=== PATIENT | male | born 1955 | race Two or more races ===

== ENCOUNTER 2024-03-28 03:31 | Inpatient (IN) | payer OTHER, MEDICAID ==
[~2024-03-28] VITALS: Ht 170.2 cm; Wt 90.7 kg
[2024-03-28] MEDS ORDERED: ACETAMINOPHEN 500 MG TAB or CAP PO ONE (03:45)
[2024-03-28 04:07] LABS: Urine Bacteria None Seen /hpf (None Seen)
--- NOTE | 2024-03-28 04:22 | ED.PDOC ---
History of Present Illness HPI Comments 68 y/o M with a history of hypertension, diabetes, liver cirrhosis, liver cancer, dyslipidemia brought in by EMS from home after family called for altered mental status starting at around 2:30 a.m.. Patient was noted to be confused and not responding appropriately to family. He is alert and oriented x4 at baseline. Patient family reported he has also been having abdominal pain and nausea for the past 3 days. On arrival he was noted to be febrile and tachycardic. He was oriented times 0 4 paramedics, however on arrival to the ED patient was able to state that he is having pain in the right upper quadrant of his abdomen. Chief Complaint: Abdominal Pain Time Seen by MD: 04:25 Primary Care Provider: Unk Reviewed Notes: Nurses Notes, Food And Beverage Checker Notes, Medications, Allergies Allergies: Coded Allergies: NO KNOWN ALLERGIES (Unverified , 03/28/24) Information Source: Emergency Med Personnel Mode of Arrival: EMS Severity: Moderate Timing: Days Duration: Since onset Prehospital treatment: None Past Medical History PAST MEDICAL HISTORY: Cancer (liver), DM, High Lipids, HTN, Liver (cirrhosis) Past Medical History (Other): obesity Surgical History (Other): lumbar fusion, right shoulder pain Family History Family History: Unknown Social History Smoker: Non-Smoker Alcohol: Denies ETOH Use Drugs: Denies Drug Use Lives In: Home All Other Systems: Reviewed and Negative (reviewed negative unless otherwise stated above or in HPI) Physical Exam General Appearance: Mild Distress, Obese HEENT: PERRL/EOMI, Other (Moist mucous membranes. No facial asymmetry.) Neck: Full Range of Motion, Normal Inspection, Supple Respiratory: Lungs Clear, No Accessory Muscle Use, No Respiratory Distress, Normal Breath Sounds Cardiovascular: No Edema, No JVD, Tachycardia Breast Exam: Deferred Gastrointestinal: Diffuse, RUQ, Soft, Tenderness, Other (Diffuse abdominal tenderness to palpation, greatest in the right upper quadrant. No rebound or guarding. No Johnson's sign.) Genitalia: Deferred Pelvic: Deferred Rectal: Deferred Extremities: Normal inspection, Normal range of motion, Non-tender, No pedal edema Neurologic: Alert (Oriented times 1. Able to answer yes/no questions.), Normal Affect, Normal Mood, Other (Moves all extremities. No gross focal deficit.) Cerebellar Function: NOT DONE Reflexes: NOT DONE Skin: Dry, Normal Color, Warm Lymphatic: NOT DONE Was a procedure done? Was a procedure done?: No EKG EKG : Pulse Rate (adult): 123 Comments Sinus tach, rate 123, normal NV and QRS intervals, QTC prolonged at 498, left axis deviation, low-voltage QRS, nonspecific T changes. Differential Dx Considerations may include: Biliary tract disease, SBP, UTI, colitis, diverticular disease, electrolyte imbalance, viral syndrome, UTI, gastroenteritis, sepsis, CVA, TIA, hepatic/metabolic encephalopathy, encephalitis, meningitis, among others X-Ray, Labs, Meds, VS Vital Signs Date Time Temp Pulse Resp B/P (MAP) Pulse Ox O2 Delivery O2 Flow Rate FiO2 03/28/24 05:11 99.3 03/28/24 04:59 128 21 161/98 03/28/24 04:22 123 03/28/24 03:41 123 03/28/24 03:35 100.0 125 23 154/95 (114) 96 Lab Test 03/28/24 05:59 03/28/24 05:55 03/28/24 04:58 03/28/24 04:03 Range/Units Influenza Type A Antigen Pending Influenza Type B Antigen Pending SARS-CoV-2 Antigen (Rapid) Pending Lactic Acid Level Pending 6.6 *H 0.4-2.0 mmol/L Troponin I High Sensitivity 51 41 </=54 ng/L White Blood Count 6.4 4.4-10.8 10^3/uL Red Blood Count 4.96 4.5-5.90 10^6/uL Hemoglobin 14.3 13.5-17.5 g/dL Hematocrit 42.8 41.0-53.0 % Mean Corpuscular Volume 86.2 80.0-100.0 fL Mean Corpuscular Hemoglobin 28.8 28.0-32.0 pg Mean Corpuscular Hemoglobin Concent 33.4 32.0-36.0 g/dL Red Cell Distribution Width 14.9 H 11.8-14.3 % Platelet Count 94 L 140-450 10^3/uL Mean Platelet Volume 8.8 6.9-10.8 fL Neutrophils (%) (Auto) 95.4 H 37.0-80.0 % Lymphocytes (%) (Auto) 2.7 L 10.0-50.0 % Monocytes (%) (Auto) 1.7 0.0-12.0 % Eosinophils (%) (Auto) 0.0 0.0-7.0 % Basophils (%) (Auto) 0.2 0.0-2.0 % Neutrophils # (Auto) 6.1 1.6-8.6 10 ^3/uL Lymphocytes # (Auto) 0.2 L 0.4-5.4 10 ^3/uL Monocytes # (Auto) 0.1 0-1.3 10 ^3/uL Eosinophils # (Auto) 0 0-0.8 10 ^3/uL Basophils # (Auto) 0 0-0.2 10 ^3/uL Nucleated Red Blood Cells 0.0 % Platelet Estimate Decreased Sodium Level 130 L 136-145 mmol/L Potassium Level 3.5 3.5-5.1 mmol/L Chloride Level 93 L 98-107 mmol/L Carbon Dioxide Level 22 20-31 mmol/L Anion Gap 15 5-15 Blood Urea Nitrogen 24 H 9-23 mg/dL Creatinine 1.09 0.700-1.30 mg/dL Glomerular Filtration Rate Calc 73 >90 mL/min BUN/Creatinine Ratio 22.0 H 10.0-20.0 Serum Glucose 200 H 74-106 mg/dL Calcium Level 10.0 8.7-10.4 mg/dL Total Bilirubin 7.1 H 0.2-1.0 mg/dL Aspartate Amino Transferase (AST) 93 H 13-40 U/L Alanine Aminotransferase (ALT) 98 H 7-40 U/L Alkaline Phosphatase 231 H 46-116 U/L Ammonia 34 H 11-32 umol/L Total Protein 7.3 5.7-8.2 g/dL Albumin 4.1 3.2-4.8 g/dL Lipase 30 12-53 U/L Test 03/28/24 04:00 Range/Units Urine Color Dark-yellow Yellow Urine Clarity Clear Clear Urine pH 6.0 5.0-9.0 Urine Specific Redig 1.020 1.001-1.035 Urine Protein 1+ H Negative Urine Ketones Trace Negative Urine Blood 1+ H Negative /uL Urine Nitrite Negative Negative Urine Bilirubin 2+ Negative Urine Urobilinogen 6 Negative mg/dL Urine Leukocyte Esterase Negative Negative /uL Urine RBC 11 0 - 3 /hpf Urine Microscopic WBC 2 0-3 /HPF Urine Squamous Epithelial Cells Few <5 /hpf Urine Bacteria None seen None Seen /hpf Urine Glucose Normal Normal mg/dL Current Medications Medications (Trade) Dose Ordered Sig/Destiney Route Start Time Stop Time Status Last Admin Ondansetron HCl (Zofran) 4 mg ONCE ONCE IV 03/28/24 03:45 03/28/24 03:50 DC 03/28/24 04:58 Morphine Sulfate 4 mg ONCE ONCE IV 03/28/24 03:45 03/28/24 03:50 DC 03/28/24 04:59 Piperacillin Sod/ Tazobactam Sod 100 ml @ 100 mls/hr ONCE ONCE IV 03/28/24 03:45 03/28/24 04:44 DC 03/28/24 05:27 Vancomycin HCl 250 ml @ 250 mls/hr ONCE ONCE IV 03/28/24 03:45 03/28/24 04:44 DC 03/28/24 05:07 Ibuprofen (Motrin Tablet) 800 mg ONCE ONCE PO 03/28/24 04:30 03/28/24 04:31 DC 03/28/24 05:11 Sodium Chloride 1,000 ml @ 1,000 mls/hr Q1H ONCE IV 03/28/24 04:30 03/28/24 05:29 DC 03/28/24 04:57 Lactulose 30 ml ONCE ONCE PO 03/28/24 05:00 03/28/24 05:03 DC 03/28/24 05:11 Sodium Chloride 2,000 ml @ 1,000 mls/hr Q2H ONCE IV 03/28/24 05:15 03/28/24 05:54 DC 03/28/24 05:27 PROCEDURE(s): HWOCT - HEAD WITHOUT CONTRAST REASON: aloc ORDER NUMBER(s): [id number], ACCESSION NUMBER(s): [id number] EXAM: CT HEAD WITHOUT CONTRAST INDICATION: aloc TECHNIQUE: CT of the head without intravenous contrast. Coronal and sagittal reformatted images are submitted. Radiation Dose : 1. Head: CT Dose: CTDI volume is 21.5 mGy. Dose-length product is 1272.4 mGy*cm The dose indicators for CT are the volume Computed Tomography (CT) Dose Index (CTDIvol) and the Dose Length Product (DLP), and are measured in units of mGy and mGy-cm, respectively. These indicators are not patient dose, but values generated from the CT scanner acquisition factors. The report includes radiation exposure data for exposures received during this examination. All CT scans at this medical facility are performed using dose modulation techniques as appro priate to a performed exam including the following: Automated exposure control was utilized; adjustment of the MA and/or KV according to patient size; and use of iterative reconstruction technique. COMPARISON: None FINDINGS: There is no evidence of acute intracranial hemorrhage, extra-axial collection, mass effect, midline shift, herniation or hydrocephalus. The ventricles, sulci and cisterns are age appropriate. The jha-white differentiation is intact. There is opacification of the left maxillary sinus and partial opacification of the right ethmoid air cells. The mastoid air cells are clear. No depressed calvarial fracture. The surrounding soft tissues are unremarkable. IMPRESSION: 1. No evidence of acute intracranial abnormality. EDURE(s): CXRP - CHEST PORTABLE REASON: fever aloc ORDER NUMBER(s): [id number], ACCESSION NUMBER(s): [id number] EXAM: XR Chest, 1 View CLINICAL INDICATION: fever aloc TECHNIQUE: Frontal view of the chest. COMPARISON: None FINDINGS: LUNGS AND PLEURAL SPACES: See below. HEART: Cardiomegaly with mild congestion. MEDIASTINUM: Unremarkable. Normal mediastinal contour. BONES/JOINTS: Unremarkable. No acute fracture. OTHER FINDINGS: . None. IMPRESSION: Cardiomegaly with mild congestion. EDURE(s): ABPL - CT AB PEL WO CON-NO ORAL OR IV REASON: abd pain, fever, aloc ORDER NUMBER(s): [id number], ACCESSION NUMBER(s): [id number] Exam: CT CT AB PEL WO CON-NO ORAL OR IV History: abd pain, fever, aloc Comparison Study: None available at time of dictation. Technique: Multidetector spiral CT of the abdomen and pelvis was performed from lung bases to pubic symphysis. Imaging was performed without intravenous contrast. Coronal and sagittal multiplanar reformats were obtained from the axial data set by the technologist. Radiation Dose : 1. Abdomen/Pelvis: CTDIvol 21.5 mGy, DLP 1272.4 mGy*cm. Findings: Evaluation of vasculature and solid organs is limited due to lack of intravenous contrast use. Lung Bases: Lung bases are clear. Visualized portions of the heart and pericardium are unremarkable. Liver: Nodular contour of the liver compatible with cirrhosis. Gallbladder and Biliary Tree: The gallbladder is distended. There are gallstones. Common bile duct is dilated measuring 9 mm and there 2 dense foci within the common bile duct suspicious for choledocholithiasis. Spleen: Enlarged spleen measuring 14.4 cm in length. Pancreas: The pancreas is grossly unremarkable. Adrenal Glands: Unremarkable Kidneys: No intrarenal calculi. There is a 2.1 cm heterogeneous mass in the lower pole of the right kidney. No hydronephrosis. GI tract: The stomach is grossly normal in appearance. No evidence of small bowel wall thickening or abnormal dilatation to suggest bowel obstruction. There is wall thickening of the ascending colon and fat stranding. The appendix is not visualized, however no evidence of acute inflammatory changes are seen in the right lower quadrant. Peritoneum/mesentery/retroperitoneum. No evidence of free intraperitoneal air. No ascites. Lymph nodes: There are lymph nodes in the johanna hepatis which measure to 1.4 cm in short axis. Abdominal Wall: Bilateral fat containing inguinal hernias. Vasculature: The visualized abdominal aorta is normal in size and caliber. Evaluation of abdominal and pelvic vessels is limited due to lack of intravenous contrast. There are atherosclerotic calcifications in the aorta. Urinary Bladder: Grossly unremarkable for degree of distention. Pelvic Organs: Unremarkable Musculoskeletal: No aggressive focal bony lesions, acute fractures or dislocation. Multilevel lumbar spondylosis. IMPRESSION: 1. Acute colitis of the ascending colon. 2. Distended gallbladder. Dense foci in the dilated common bile duct suspicious for stones in the common bile duct. Right upper quadrant ultrasound is suggested for further evaluation. 3. 2.1 cm right renal mass. This is concerning for malignancy. 4. Cirrhosis and stigmata of portal hypertension. 5. Lymph nodes in the johanna hepatis may be reactive or or could reflect edelmira metastases. X-Ray, Labs, Meds, VS Comment 68-year-old male with a history of hypertension, diabetes, dyslipidemia, liver cirrhosis, liver CA, CKD brought in by EMS from home with altered mental status, fever and abdominal pain Vitals remarkable for temperature 100, heart rate 125, respiratory rate 23, BP 154/95 Exam remarkable for orientation x1, tachycardia, diffuse abdominal tenderness to palpation, greatest in the right upper quadrant CT head unremarkable Chest x-ray mild vascular congestion CT abdomen and pelvis IMPRESSION: 1. Acute colitis of the ascending colon. 2. Distended gallbladder. Dense foci in the dilated common bile duct suspicious for stones in the common bile duct. Right upper quadrant ultrasound is suggested for further evaluation. 3. 2.1 cm right renal mass. This is concerning for malignancy. 4. Cirrhosis and stigmata of portal hypertension. 5. Lymph nodes in the johanna hepatis may be reactive or or could reflect edelmira metastases. CBC remarkable for platelets 94, metabolic panel remarkable for sodium 130, chloride 93, BUN 24, glucose 200, lipase normal, ammonia level elevated at 34, lactate 6.6, UA pending Patient treated with the following in the ED: 1 L 0.9 normal saline IV bolus, morphine 4 mg IV, Zofran 4 mg IV, Zosyn 4.5 g IV, vancomycin 1 g IV, ibuprofen 800 mg p.o., lactulose 30 mL p.o. On re-evaluation, patient states pain has improved. Tachycardia is improving. Plan is to admit the patient for IV antibiotics, lactate trend and GI evaluat ion. Time of 1ST Reevaluation: 04:55 Reevaluation 1ST: Unchanged Patient Education/Counseling: Other (patient is altered ) Family Education/Counseling: No Family Present Sepsis Sepsis Reasesment Focused Exam Sepsis focused exam: focus exam completed (Capillary refill less than 2 seconds, tachycardia improving. 30 cc/kilogram bolus was not administered due to finding of vascular congestion on chest x-ray. Aggressive fluid hydration may cause harm.), time: (0502) Departure 1 Departure Time of Disposition: 05:24 Impression: Primary Impression: Hepatic encephalopathy Additional Impressions: Sepsis Qualified Codes: A41.9 - Sepsis, unspecified organism Colitis Disposition: ADMITTED INPATIENT Admit to: [facility] Condition: Guarded Critical Care Note Critical Care Time?: Yes (45 min-critical care time only) Critical care comment: Critical care time including multiple bedside re-evaluations, review of lab and imaging studies, and discussion of the case with the admitting provider. Patient is high risk for neurologic, hemodynamic and/or metabolic decompensation. Stability Stability form required: No Heart Score Heart Score: Heart Score Response (Comments) Value History N/A 0 EKG N/A 0 Age N/A 0 Risk Factors N/A 0 Troponin N/A 0 Total 0 I personally scribed for HAIM CARMONA MD ([email or web address]) on 03/28/24 at 04:22. Electronically submitted by Tato Clement ([email or web address]). I personally scribed for HAIM CARMONA MD ([email or web address]) on 03/28/24 at 04:44. Electronically submitted by Tato Clement ([email or web address]). HAIM CARMONA MD Mar 28, 2024 04:22
[2024-03-28 04:36] LABS: Albumin 4.1 g/dL (3.2-4.8); Anion Gap 15 (5-15); Carbon Dioxide 22 mmol/L (20-31); Lipase 30 U/L (12-53); Potassium 3.5 mmol/L (3.5-5.1); Total Protein 7.3 g/dL (5.7-8.2)
[2024-03-28 04:39] LABS: Basophils # (auto) 0 10 ^3/uL (0-0.2); Basophils % (auto) 0.2 % (0.0-2.0); Eosinophils # (auto) 0 10 ^3/uL (0-0.8); Hematocrit 42.8 % (41.0-53.0); Hemoglobin 14.3 g/dL (13.5-17.5); Lymphocytes # (auto) 0.2 10 ^3/uL (0.4-5.4); Lymphocytes % (auto) 2.7 % (10.0-50.0); Mean Corpuscular Hemoglobin 28.8 pg (28.0-32.0); Mean Corpuscular Hgb Conc. 33.4 g/dL (32.0-36.0); Mean Corpuscular Volume 86.2 fL (80.0-100.0); Monocytes # (auto) 0.1 10 ^3/uL (0-1.3); Monocytes % (auto) 1.7 % (0.0-12.0); Neutrophils # (auto) 6.1 10 ^3/uL (1.6-8.6); Neutrophils % (auto) 95.4 % (37.0-80.0); Platelet Count (auto) 94 10^3/uL (140-450); Red Blood Cells 4.96 10^6/uL (4.5-5.90); Red Cell Distribution Width 14.9 % (11.8-14.3); White Blood Cell 6.4 10^3/uL (4.4-10.8)
[2024-03-28 04:44] LABS: Alanine Aminotransferase 98 U/L (7-40); Alkaline Phosphatase 231 U/L (46-116); Aspartate Aminotransferase 93 U/L (13-40); Bilirubin, Total 7.1 mg/dL (0.2-1.0); Blood Urea Nitrogen 24 mg/dL (9-23); Chloride 93 mmol/L (98-107); Glucose 200 mg/dL (74-106); Sodium 130 mmol/L (136-145)
[2024-03-28 04:45] LABS: Lactic Acid w/Reflex 6.6 mmol/L (0.4-2.0)
[2024-03-28] MEDS: SODIUM CHLORIDE 0.9% 1,000 ML IV ONE (04:57)
[2024-03-28] MEDS: ONDANSETRON HCL 4 MG/2 ML VIAL IV ONE (04:58)
[2024-03-28] MEDS: MORPHINE SULFATE 4 MG/ML SYR/VIAL IV ONE (04:59)
[2024-03-28 05:03] LABS: Urine Blood 1+ /uL (Negative); Urine Clarity Clear (Clear); Urine Color Dark-Yellow (Yellow); Urine Protein, UAD 1+ (Negative); Urine Squamous Epithelial Cell FEW /hpf (<5); Urine Urobilinogen 6 mg/dL (Negative); Urine WBC 2 /HPF (0-3)
[2024-03-28] MEDS: VANCOMYCIN 1GM/250ML KIT 250 ML IV ONE (05:07)
[2024-03-28] MEDS: LACTULOSE 20Gm/30ML SOLN PO ONE (05:11)
[2024-03-28] MEDS: IBUPROFEN 800 MG TAB PO ONE (05:11)
--- NOTE | 2024-03-28 05:18 | ECG ---
[facility] Test Date: 2024-03-28 Test Time: 03:35:00 Pat Name: MANUEL ARZATE Department: ED Room: 0291T Gender: M Parachute Line Tier: FAHAD : 1955 Requested By: HAIM SMITH Order Number: [id number] Reading MD: Jay Carlos Measurements Intervals [place] Rate: 127 P: 0 CT: 121 QRS: -37 QRSD: 94 T: 77 QT: 345 QTc: 502 Interpretive Statements Sinus tachycardia Left axis deviation Low voltage, precordial leads Prolonged QT interval Electronically Signed On 03-30-2024 22:04:28 PST by Jay Carlos Please click the below link to view image of tracing.
[2024-03-28] MEDS: PIPERACILLIN-TAZO 4.5GM 100 ML IV ONE (05:27)
[2024-03-28] MEDS: SODIUM CHLORIDE 0.9% 2,000 ML IV ONE (05:27)
[2024-03-28 05:29] LABS: Platelet Estimate Decreased
--- NOTE | 2024-03-28 05:45 | DVH ---
EXAM: XR Chest, 1 View CLINICAL INDICATION: fever aloc TECHNIQUE: Frontal view of the chest. COMPARISON: None FINDINGS: LUNGS AND PLEURAL SPACES: See below. HEART: Cardiomegaly with mild congestion. MEDIASTINUM: Unremarkable. Normal mediastinal contour. BONES/JOINTS: Unremarkable. No acute fracture. OTHER FINDINGS: . None. IMPRESSION: Cardiomegaly with mild congestion.
--- NOTE | 2024-03-28 05:58 | DVH ---
Exam: CT CT AB PEL WO CON-NO ORAL OR IV History: abd pain, fever, aloc Comparison Study: None available at time of dictation. Technique: Multidetector spiral CT of the abdomen and pelvis was performed from lung bases to pubic s ymphysis. Imaging was performed without intravenous contrast. Coronal and sagittal multiplanar refor mats were obtained from the axial data set by the technologist. Radiation Dose : 1. Abdomen/Pelvis: CTDIvol 21.5 mGy, DLP 1272.4 mGy*cm. Findings: Evaluation of vasculature and solid organs is limited due to lack of intravenous contrast use. Lung Bases: Lung bases are clear. Visualized portions of the heart and pericardium are unremarkable. Liver: Nodular contour of the liver compatible with cirrhosis. Gallbladder and Biliary Tree: The gallbladder is distended. There are gallstones. Common bile duct i s dilated measuring 9 mm and there 2 dense foci within the common bile duct suspicious for choledocho lithiasis. Spleen: Enlarged spleen measuring 14.4 cm in length. Pancreas: The pancreas is grossly unremarkable. Adrenal Glands: Unremarkable Kidneys: No intrarenal calculi. There is a 2.1 cm heterogeneous mass in the lower pole of the right kidney. No hydronephrosis. GI tract: The stomach is grossly normal in appearance. No evidence of small bowel wall thickening or abnormal dilatation to suggest bowel obstruction. There is wall thickening of the ascending colon an d fat stranding. The appendix is not visualized, however no evidence of acute inflammatory changes ar e seen in the right lower quadrant. Peritoneum/mesentery/retroperitoneum. No evidence of free intraperitoneal air. No ascites. Lymph nodes: There are lymph nodes in the johanna hepatis which measure to 1.4 cm in short axis. Abdominal Wall: Bilateral fat containing inguinal hernias. Vasculature: The visualized abdominal aorta is normal in size and caliber. Evaluation of abdominal a nd pelvic vessels is limited due to lack of intravenous contrast. There are atherosclerotic calcifica tions in the aorta. Urinary Bladder: Grossly unremarkable for degree of distention. Pelvic Organs: Unremarkable Musculoskeletal: No aggressive focal bony lesions, acute fractures or dislocation. Multilevel lumbar spondylosis. IMPRESSION: 1. Acute colitis of the ascending colon. 2. Distended gallbladder. Dense foci in the dilated common bile duct suspicious for stones in the com mon bile duct. Right upper quadrant ultrasound is suggested for further evaluation. 3. 2.1 cm right renal mass. This is concerning for malignancy. 4. Cirrhosis and stigmata of portal hypertension. 5. Lymph nodes in the johanna hepatis may be reactive or or could reflect edelmira metastases.
--- NOTE | 2024-03-28 06:01 | DVH ---
EXAM: CT HEAD WITHOUT CONTRAST INDICATION: aloc TECHNIQUE: CT of the head without intravenous contrast. Coronal and sagittal reformatted images are submitted. Radiation Dose : 1. Head: CT Dose: CTDI volume is 21.5 mGy. Dose-length product is 1272.4 mGy*cm The dose indicators for CT are the volume Computed Tomography (CT) Dose Index (CTDIvol) and the Dose Length Product (DLP), and are measured in units of mGy and mGy-cm, respectively. These indicators are not patient dose, but values generated from the CT scanner acquisition factors. The report includes radiation exposure data for exposures received during this examination. All CT scans at this medical facility are performed using dose modulation techniques as appropriate to a performed exam including the following: Automated exposure control was utilized; adjustment of the MA and/or KV according to patient size; and use of iterative reconstruction technique. COMPARISON: None FINDINGS: There is no evidence of acute intracranial hemorrhage, extra-axial collection, mass effect, midline s hift, herniation or hydrocephalus. The ventricles, sulci and cisterns are age appropriate. The jha-white differentiation is intact. There is opacification of the left maxillary sinus and partial opacification of the right ethmoid air cells. The mastoid air cells are clear. No depressed calvarial fracture. The surrounding soft tissues are unremarkable. IMPRESSION: 1. No evidence of acute intracranial abnormality.
[2024-03-28 06:40] LABS: Rapid Influenza A Negative (Negative); Rapid Influenza B Negative (Negative)
[2024-03-28 06:41] LABS: COVID19 ANTIGEN SOFIA FIA NEGATIVE (NEGATIVE)
--- NOTE | 2024-03-28 08:07 | DVH ---
EXAM: US GALLBLADDER INDICATION: Cholelithiasis TECHNIQUE: Multiple real-time sonographic images were obtained of the right upper quadrant. COMPARISON: None FINDINGS: The liver demonstrates heterogeneous echotexture without focal mass lesions. There is a nod ular contour. Liver measures 16.0cm in length. There is hepatopedal color doppler flow in the main portal vein. There is no intrahepatic biliary ductal dilatation. The gallbladder has sludge and gallstones. The gallbladder wall measures 0.8 cm. The common bile duct measures 0.9 cm. There is a negative sonographic Johnson's sign. The right kidney measures 10.2 cm. No hydronephrosis. Hypoechoic mass in the upper pole o the righ t kidney measures 2.0cm x 2.1 x 1.9 cm. The pancreas is not well visualized due to overlying bowel gas. Visualized portions of the aorta and inferior vena cava are unremarkable. No evidence of ascites. IMPRESSION: 1. Gallstones and sludge. Gallbladder wall thickening measuring 0.8 cm. Negative sonographic johnson's sign. 2. 2.1 cm right renal hypoechoic mass. This is concerning for malignancy. MRI of the abdomen with in travenous contrast is recommended. 3. Cirrhosis.
[2024-03-28] MEDS ORDERED: ATEN100T PO (08:10)
[2024-03-28] MEDS ORDERED: LACT10SO3 PO (08:10)
[2024-03-28] MEDS ORDERED: FLUT100I INH (08:10)
[2024-03-28] MEDS ORDERED: FURO20TA4 PO (08:10)
[2024-03-28] MEDS ORDERED: TIZA-142 PO (08:10)
[2024-03-28] MEDS ORDERED: DULO1CAP6 PO (08:10)
[2024-03-28] MEDS ORDERED: LISI40TA16 PO (08:10)
[2024-03-28] MEDS ORDERED: ATOR10TA PO (08:10)
[2024-03-28] MEDS ORDERED: METF-370 PO (08:10)
[2024-03-28] MEDS ORDERED: TRAZ-227 PO (08:10)
[2024-03-28] MEDS ORDERED: ONDANSETRON HCL 4 MG/2 ML VIAL IV PRN (08:15)
[2024-03-28] MEDS ORDERED: MORPHINE SULFATE INJ 2 MG/ml SYRG IV PRN (08:15)
[2024-03-28] MEDS ORDERED: DEXTROSE (50%) 50ML SYRG IV PRN (08:15)
[2024-03-28] MEDS ORDERED: NITROGLYCERIN 0.4 MG SL TAB SL PRN (08:15)
--- NOTE | 2024-03-28 08:24 | DVHHP2 ---
History of Present Illness Reason for Visit: Abdominal pain, ALOC History of Present Illness Jonny Carter is a 68-year-old male with past medical history of diabetes, hypertension, sleep apnea, hyperlipidemia, liver cirrhosis, and liver cancer, who came in for abdominal pain and ALOC. Patient lives with his daughter. She states he is usually independent with all his ADL's. This morning she found him confused, unable to get out of the bathroom and he had urinated on himself. Lactic acid level is elevated in ER. During his time in the ER BP has been decreasing, all home BP medications held. Patient continues to be altered. Cardiovascular: HTN, hyperipidemia Pulmonary: Other (Sleep apnea) Heme/Onc: Cancer (Liver) Hepatobiliary: Cirrhosis Endocrine: Diabetes Past Surgical History: Other (right shoulder, back fusion) Family History: None Smoke: No ALCOHOL: none Drugs: None Lives: with Family Review of Systems Constitutional: No: Fever, Chills, Sweats, Weakness, Malaise, Other Eyes: No: Pain, Vision change, Conjunctivae inflammation, Eyelid inflammation, Other, Redness ENT: No: Ear pain, Ear discharge, Nose pain, Nose discharge, Nose congestion, M outh pain, Mouth swelling, Throat pain, Throat swelling, Other Respiratory: No: Cough, Dry, Shortness of breath, SOB with excertion, Wheezing, Hemoptysis, Pleuritic Pain, Sputum, Wheezing, Other Cardiovascular: No: Chest Pain, Palpitations, Orthopnea, Paroxysmal Noc. Dyspnea, Edema, Lt Headedness, Other Gastrointestinal: Abdominal Pain; No: Nausea, Vomiting, Diarrhea, Constipation, Melena, Hematochezia, Other Genitourinary: No Dysuria, No Frequency, No Incontinence, No Hematuria, No Retention, No Other Musculoskeletal: No: other, neck pain, shoulder pain, arm pain, back pain, hand pain, leg pain, foot pain Skin: No: Rash, Lesions, Jaundice, Bruising, Other Neurological: Weakness, Confusion; No: Numbness, Incoordination, Change in speech, Seizures, Other Allergies: Coded Allergies: NO KNOWN ALLERGIES (Unverified , 03/28/24) Medications Current Medications Medications Dose Ordered Sig/Destiney Route Start Time Stop Time Status Last Admin Dose Admin Sodium Chloride 10 ml Q8HR IV 03/28/24 14:00 UNV Acetaminophen/ Hydrocodone Bitart 1 tab Q4HP PRN PO 03/28/24 08:15 UNV Ondansetron HCl 4 mg Q4HP PRN IV 03/28/24 08:15 UNV Docusate Sodium 100 mg BIDPRN PRN PO 03/28/24 08:15 UNV Nitroglycerin 0.4 mg Q5MINP PRN SL 03/28/24 08:15 UNV Morphine Sulfate 2 mg Q30M PRN IV 03/28/24 08:15 UNV Diagnostic Test (Pha) 1 strip Q6HR 03/28/24 12:00 UNV Insulin Human Regular Q6HR SC 03/28/24 12:00 UNV Dextrose 50 ml UD PRN IV 03/28/24 08:15 UNV Trazodone HCl 100 mg HSPRN PRN PO 03/28/24 08:15 UNV Patient Own Medication 1 tab DAILY PO 03/28/24 10:00 UNV Patient Own Medication 10 mg HS PO 03/28/24 22:00 UNV Patient Own Medication 1 tab DAILY PO 03/28/24 10:00 UNV Patient Own Medication 1 puff BID INH 03/28/24 10:00 UNV Patient Own Medication 15 ml BID PO 03/28/24 10:00 UNV Patient Own Medication 1 tab DAILY PO 03/28/24 10:00 UNV Patient Own Medication 1 tab TID PO 03/28/24 14:00 UNV Exam Vital Signs Vital Signs Date Time Temp Pulse Resp B/P (MAP) Pulse Ox O2 Delivery O2 Flow Rate FiO2 03/28/24 06:00 98.2 98 15 126/81 (96) 93 98.2 03/28/24 04:30 Nasal Cannula* 2 28 General Appearance: moderate distress, Other (lethargic, A&O x 2) HEENT: Atraumatic, PERRLA Respiratory: Other (Sleep apnea) Cardiovascular: Normal S1, Normal S2 Abdominal: Normal bowel sounds, Soft, Other (distneded, firm, tender to palpitation) Extremities: No clubbing, No cyanosis, Other (bilateral lower extremity edema) Skin: No rashes, No breakdown Neuro: Other (Unable to ambulate at this time. lethargic) Labs/Xrays Labs Test 03/28/24 07:18 03/28/24 05:59 03/28/24 05:55 03/28/24 04:03 Range/Units Troponin I High Sensitivity 60 *H </=54 ng/L Influenza Type A Antigen Negative Negative Influenza Type B Antigen Negative Negative SARS-CoV-2 Antigen (Rapid) Negative NEGATIVE Lactic Acid Level 4.8 *H 0.4-2.0 mmol/L White Blood Count 6.4 4.4-10.8 10^3/uL Red Blood Count 4.96 4.5-5.90 10^6/uL Hemoglobin 14.3 13.5-17.5 g/dL Hematocrit 42.8 41.0-53.0 % Mean Corpuscular Volume 86.2 80.0-100.0 fL Mean Corpuscular Hemoglobin 28.8 28.0-32.0 pg Mean Corpuscular Hemoglobin Concent 33.4 32.0-36.0 g/dL Red Cell Distribution Width 14.9 H 11.8-14.3 % Platelet Count 94 L 140-450 10^3/uL Mean Platelet Volume 8.8 6.9-10.8 fL Neutrophils (%) (Auto) 95.4 H 37.0-80.0 % Lymphocytes (%) (Auto) 2.7 L 10.0-50.0 % Monocytes (%) (Auto) 1.7 0.0-12.0 % Eosinophils (%) (Auto) 0.0 0.0-7.0 % Basophils (%) (Auto) 0.2 0.0-2.0 % Neutrophils # (Auto) 6.1 1.6-8.6 10 ^3/uL Lymphocytes # (Auto) 0.2 L 0.4-5.4 10 ^3/uL Monocytes # (Auto) 0.1 0-1.3 10 ^3/uL Eosinophils # (Auto) 0 0-0.8 10 ^3/uL Basophils # (Auto) 0 0-0.2 10 ^3/uL Nucleated Red Blood Cells 0.0 % Platelet Estimate Decreased Sodium Level 130 L 136-145 mmol/L Potassium Level 3.5 3.5-5.1 mmol/L Chloride Level 93 L 98-107 mmol/L Carbon Dioxide Level 22 20-31 mmol/L Anion Gap 15 5-15 Blood Urea Nitrogen 24 H 9-23 mg/dL Creatinine 1.09 0.700-1.30 mg/dL Glomerular Filtration Rate Calc 73 >90 mL/min BUN/Creatinine Ratio 22.0 H 10.0-20.0 Serum Glucose 200 H 74-106 mg/dL Calcium Level 10.0 8.7-10.4 mg/dL Total Bilirubin 7.1 H 0.2-1.0 mg/dL Aspartate Amino Transferase (AST) 93 H 13-40 U/L Alanine Aminotransferase (ALT) 98 H 7-40 U/L Alkaline Phosphatase 231 H 46-116 U/L Ammonia 34 H 11-32 umol/L Total Protein 7.3 5.7-8.2 g/dL Albumin 4.1 3.2-4.8 g/dL Lipase 30 12-53 U/L Test 03/28/24 04:00 Range/Units Urine Color Dark-yellow Yellow Urine Clarity Clear Clear Urine pH 6.0 5.0-9.0 Urine Specific [place] 1.020 1.001-1.035 Urine Protein 1+ H Negative Urine Ketones Trace Negative Urine Blood 1+ H Negative /uL Urine Nitrite Negative Negative Urine Bilirubin 2+ Negative Urine Urobilinogen 6 Negative mg/dL Urine Leukocyte Esterase Negative Negative /uL Urine RBC 11 0 - 3 /hpf Urine Microscopic WBC 2 0-3 /HPF Urine Squamous Epithelial Cells Few <5 /hpf Urine Bacteria None seen None Seen /hpf Urine Glucose Normal Normal mg/dL Exam: CT CT AB PEL WO CON-NO ORAL OR IV Findings: Evaluation of vasculature and solid organs is limited due to lack of intravenous contrast use. Lung Bases: Lung bases are clear. Visualized portions of the heart and pericardium are unremarkable. Liver: Nodular contour of the liver compatible with cirrhosis. Gallbladder and Biliary Tree: The gallbladder is distended. There are gallstones. Common bile duct is dilated measuring 9 mm and there 2 dense foci within the common bile duct suspicious for choledocholithiasis. Spleen: Enlarged spleen measuring 14.4 cm in length. Pancreas: The pancreas is grossly unremarkable. Adrenal Glands: Unremarkable Kidneys: No intrarenal calculi. There is a 2.1 cm heterogeneous mass in the lower pole of the right kidney. No hydronephrosis. GI tract: The stomach is grossly normal in appearance. No evidence of small bowel wall thickening or abnormal dilatation to suggest bowel obstruction. There is wall thickening of the ascending colon and fat stranding. The appendix is not visualized, however no evidence of acute inflammatory changes are seen in the right lower quadrant. Peritoneum/mesentery/retroperitoneum. No evidence of free intraperitoneal air. No ascites. Lymph nodes: There are lymph nodes in the johanna hepatis which measure to 1.4 cm in short axis. Abdominal Wall: Bilateral fat containing inguinal hernias. Vasculature: The visualized abdominal aorta is normal in size and caliber. Evaluation of abdominal and pelvic vessels is limited due to lack of intravenous contrast. There are atherosclerotic calcifications in the aorta. Urinary Bladder: Grossly unremarkable for degree of distention. Pelvic Organs: Unremarkable Musculoskeletal: No aggressive focal bony lesions, acute fractures or dislocation. Multilevel lumbar spondylosis. IMPRESSION: 1. Acute colitis of the ascending colon. 2. Distended gallbladder. Dense foci in the dilated common bile duct suspicious for stones in the common bile duct. Right upper quadrant ultrasound is suggested for further evaluation. 3. 2.1 cm right renal mass. This is concerning for malignancy. 4. Cirrhosis and stigmata of portal hypertension. 5. Lymph nodes in the johanna hepatis may be reactive or or could reflect edelmira metastases. EXAM: XR Chest, 1 View FINDINGS: LUNGS AND PLEURAL SPACES: See below. HEART: Cardiomegaly with mild congestion. MEDIASTINUM: Unremarkable. Normal mediastinal contour. BONES/JOINTS: Unremarkable. No acute fracture. OTHER FINDINGS: . None. IMPRESSION: Cardiomegaly with mild congestion. EXAM: CT HEAD WITHOUT CONTRAST FINDINGS: There is no evidence of acute intracranial hemorrhage, extra-axial collection, mass effect, midline shift, herniation or hydrocephalus. The ventricles, sulci and cisterns are age appropriate. The jha-white differentiation is intact. There is opacification of the left maxillary sinus and partial opacification of the right ethmoid air cells. The mastoid air cells are clear. No depressed calvarial fracture. The surrounding soft tissues are unremarkable. IMPRESSION: 1. No evidence of acute intracranial abnormality. EXAM: US GALLBLADDER FINDINGS: The liver demonstrates heterogeneous echotexture without focal mass lesions. There is a nodular contour. Liver measures 16.0cm in length. There is hepatopedal color doppler flow in the main portal vein. There is no intrahepatic biliary ductal dilatation. The gallbladder has sludge and gallstones. The gallbladder wall measures 0.8 cm. The common bile duct measures 0.9 cm. There is a negative sonographic Johnson's sign. The right kidney measures 10.2 cm. No hydronephrosis. Hypoechoic mass in the upper pole o the right kidney measures 2.0cm x 2.1 x 1.9 cm. The pancreas is not well visualized due to overlying bowel gas. Visualized portions of the aorta and inferior vena cava are unremarkable. No evidence of ascites. IMPRESSION: 1. Gallstones and sludge. Gallbladder wall thickening measuring 0.8 cm. Negative sonographic johnson's sign. 2. 2.1 cm right renal hypoechoic mass. This is concerning for malignancy. MRI of the abdomen with intravenous contrast is recommended. 3. Cirrhosis. Assessment/Plan Assessment/Plan Assessment: Hepatic encephalopathy, Liver cancer with possible metastasis, Possible Cholelithiasis, Right renal mass, Lactic acidosis, Possible sepsis, Enlarged lymph nodes, hypertension, Diabetes, Hyperlipidemia, Plan: Admit to Tele, Ammonia levels daily, PT/PTT, Gallbladder ultrasound, Lactic acid, Consider GI for Cholelithiasis, Consider MRI of abdomen, IV hydration, IV antibiotics, Blood cultures, Urine cultures, NPO until mentation improves, Accu checks Q 6 hours with sliding scale, May need to change lactulose from PO to [place], Home medications reconciled, Home BP medications held, Plan discussed with: Patient, Daughter My Orders Orders - TELMA ERICKSON DOOR PATCHER Procedure Category Date Status Time Gallbladder US 03/28/24 Resulted 07:21 Admit ADMIT 03/28/24 Transmitted 08:05 Code Status CODE 03/28/24 Transmitted 08:05 Sodium Chloride Lock PHA 03/28/24 Logged (Saline Lock Ns) 14:00 Hydrocodone-Acet PHA 03/28/24 Logged 5/325mg Tab (Battiest 08:15 Ondansetron Hcl PHA 03/28/24 Logged (Zofran) 08:15 Docusate Sodium PHA 03/28/24 Logged Capsule (Colace 08:15 Complete Blood Count LAB 03/29/24 Verified 04:00 Comprehensive LAB 03/29/24 Verified Metabolic Panel 04:00 Npo (Nothing By DIET 03/28/24 Transmitted Mouth) Diet Breakfast Condition: Critical ERIC 03/28/24 In Process 08:05 Nitroglycerin PHA 03/28/24 Logged Sublingual (Ntrostat 08:15 Morphine Sulfate PHA 03/28/24 Logged Injection 08:15 Stat Ekg For Chest ERIC 03/28/24 In Process Pain 08:05 Notify Of Changes ERIC 03/28/24 In Process From Base 08:05 Casing Cleaner For ERIC 03/28/24 In Process 24 Hours 08:05 Emergency Dysrhythmia ERIC 03/28/24 In Process Protocol 08:05 Rhythm Strips Once [facility] 03/28/24 In Process Every Shift 08:05 Oxygen By Nasal RT 03/28/24 Transmitted Cannula 08:05 Glucose Blood PHA 03/28/24 Logged (Accu-Chek Comfort 12:00 Insulin R (Human) PHA 03/28/24 Logged (Insulin R) 12:00 Dextrose 50% Syringe PHA 03/28/24 Logged 08:15 Ammonia LAB 03/29/24 Verified 04:00 Trazodone Hcl PHA 03/28/24 Logged (Desyrel) 08:15 (Nf) Atenolol PHA 03/28/24 Logged 10:00 (Nf) Atorvastatin PHA 03/28/24 Logged Calcium (Lipitor) 22:00 (Nf) Duloxetine Hcl PHA 03/28/24 Logged 10:00 (Nf) Fluticasone PHA 03/28/24 Logged Furoate-Vilanterol 10:00 (Nf) Lactulose PHA 03/28/24 Logged 10:00 (Nf) Lisinopril PHA 03/28/24 Logged 10:00 (Nf) Tizanidine PHA 03/28/24 Logged Hydrochloride 14:00 Furosemide Injection PHA 03/28/24 Transmitted (Lasix Injection) 08:15 Furosemide Injection PHA 03/28/24 Transmitted (Lasix Injection) 18:00 PTPTT LAB 03/28/24 Verified 08:16 Date of Service: Mar 28, 2024 Billing Provider: TELMA ERICKSON Common Visit Codes: [id number] INP/OBS CARE (HIGH) TELMA ERICKSON Mar 28, 2024 08:23
[2024-03-28 08:39] LABS: INR 1.36 (0.9-1.15); Partial Thromboplastin Time 30.1 SEC (24.5-34.5)
[2024-03-28] MEDS: FUROSEMIDE 40 MG/4 ML VIAL IV ONE (09:05)
[2024-03-28] MEDS ORDERED: ATENOLOL 25 MG TAB PO SCH (10:00)
[2024-03-28] MEDS ORDERED: LISINOPRIL 20 MG TAB PO SCH (10:00)
[2024-03-28] MEDS ORDERED: PATIENTS OWN MEDICATION (Lisinopril 1 TAB) PO SCH (10:00)
[2024-03-28] MEDS ORDERED: DULOXETINE HCL PO SCH (10:00)
[2024-03-28] MEDS: LACTULOSE 20Gm/30ML SOLN PO SCH (10:00)
[2024-03-28] MEDS ORDERED: PATIENTS OWN MEDICATION (Lactulose 15 ML) PO SCH (10:00)
[2024-03-28] MEDS: DULoxetine HCL 30 MG CAP PO SCH (10:00)
[2024-03-28] MEDS ORDERED: VANCOMYCIN 1GM/250ML KIT 250 ML IV ONE (10:00)
[2024-03-28] MEDS ORDERED: VANCOMYCIN PER PHARMACY 0 MG IV SCH (10:00)
[2024-03-28] MEDS ORDERED: ATENOLOL PO SCH (10:00)
[2024-03-28] MEDS: cefTRIAXone 1GM/50ML D5W 50 ML IV ONE (10:47)
[2024-03-28] MEDS: SODIUM CHLORIDE 0.9% 1,000 ML IV SCH (10:48)
[2024-03-28] MEDS: VANCOMYCIN 1GM/250ML KIT 250 ML IV SCH (11:00)
[2024-03-28] MEDS: ACCU-CHEK COMFORT CURVE STRIP VI SCH (12:35)
[2024-03-28] MEDS: InsuLIN REG 1unit/0.01ml Soln (100units/ml) SC SCH (12:38)
--- NOTE | 2024-03-28 12:50 | ECG ---
[facility] Test Date: 2024-03-28 Test Time: 03:41:01 Pat Name: MANUEL ARZATE Department: ED Room: 0291T Gender: M Slip Dumper: FAHAD : 1955 Requested By: HAIM SMITH Order Number: [id number] Reading MD: Jay Carlos Measurements Intervals [place] Rate: 123 P: 0 NV: 0 QRS: -32 QRSD: 88 T: 70 QT: 348 QTc: 498 Interpretive Statements Junctional tachycardia Left axis deviation Low voltage, precordial leads Borderline T abnormalities, anterior leads Borderline prolonged QT interval Baseline wander in lead(s) III,V3 Electronically Signed On 03-30-2024 22:04:34 PST by Jay Carlos Please click the below link to view image of tracing.
[2024-03-28] MEDS: TIZANIDINE HYDROCHLORIDE 4 MG PO SCH (14:00)
[2024-03-28] MEDS: SODIUM CHLOR 0.9% PF (SALINE LOCK) 10ML VIAL/SYR IV SCH (15:42)
[2024-03-28] MEDS: FUROSEMIDE 20 MG/2 ML VIAL IV SCH (18:30)
[2024-03-28 20:34] VITALS: PULSE 74; RESP 18; O2SAT 97
[2024-03-28] MEDS: HYDROcodone-ACET 5/325MG TAB PO PRN (20:34)
[2024-03-28] MEDS ORDERED: PATIENTS OWN MEDICATION (Atorvastatin Calcium (Lipitor) 10 MG) PO SCH (22:00)
[2024-03-28] MEDS: ATORVASTATIN 20 MG TAB PO SCH (22:21)
[2024-03-29] VITALS (11 sets, daily range): BP systolic 106–148; BP diastolic 66–86; PULSE 70–88; RESP 15–20; TEMP 98–99.3; O2SAT 96–99
[2024-03-29] MEDS: VANCOMYCIN 1GM/250ML KIT 250 ML IV SCH (00:20)
[2024-03-29 04:35] LABS: Albumin 3.3 g/dL (3.2-4.8); Anion Gap 8 (5-15); BUN/Creatinine Ratio 19.2 (10.0-20.0); Blood Urea Nitrogen 15 mg/dL (9-23); Calcium 9.1 mg/dL (8.7-10.4); Carbon Dioxide 27 mmol/L (20-31); Chloride 98 mmol/L (98-107)
[2024-03-29 04:36] LABS: Total Protein 6.2 g/dL (5.7-8.2)
[2024-03-29 04:39] LABS: Alanine Aminotransferase 81 U/L (7-40); Alkaline Phosphatase 176 U/L (46-116); Aspartate Aminotransferase 91 U/L (13-40); Bilirubin, Total 5.6 mg/dL (0.2-1.0); Glucose 157 mg/dL (74-106); Potassium 3.5 mmol/L (3.5-5.1); Sodium 133 mmol/L (136-145)
[2024-03-29 04:42] LABS: Basophils # (auto) 0 10 ^3/uL (0-0.2); Basophils % (auto) 0.1 % (0.0-2.0); Eosinophils # (auto) 0.2 10 ^3/uL (0-0.8); Eosinophils % (auto) 2.3 % (0.0-7.0); Hematocrit 39.5 % (41.0-53.0); Lymphocytes # (auto) 0.4 10 ^3/uL (0.4-5.4); Lymphocytes % (auto) 4.1 % (10.0-50.0); Mean Corpuscular Hemoglobin 28.6 pg (28.0-32.0); Mean Corpuscular Hgb Conc. 32.8 g/dL (32.0-36.0); Mean Corpuscular Volume 87.1 fL (80.0-100.0); Monocytes # (auto) 0.4 10 ^3/uL (0-1.3); Neutrophils # (auto) 7.7 10 ^3/uL (1.6-8.6); Neutrophils % (auto) 88.5 % (37.0-80.0); Nucleated Red Blood Cells % 0.1 %; Platelet Count (auto) 81 10^3/uL (140-450); Red Blood Cells 4.54 10^6/uL (4.5-5.90); Red Cell Distribution Width 15.3 % (11.8-14.3); White Blood Cell 8.7 10^3/uL (4.4-10.8)
[2024-03-29] MEDS: cefTRIAXone 1GM/50ML D5W 50 ML IV SCH (09:45)
--- NOTE | 2024-03-29 11:43 | DVHPN2 ---
Subjective The patient is seen and examined at bedside. The patient is more alert awake. Two of his daughters at bedside. The patient is hungry and wanted to eat. The patient passed bedside swallow evaluation Reviewed: Care Plan, H&P, Labs, Medications, Previous Orders, Radiology Changes from previous H/P or p: No Changes Eyes: No Pain, No Vision change, No Conjunctivae inflammation, No Eyelid inflammation, No Other, No Redness ENT: No Ear pain, No Ear discharge, No Nose pain, No Nose discharge, No Nose congestion, No Mouth pain, No Mouth swelling, No Throat pain, No Throat swelling, No Other Cardiovascular: No Chest Pain, No Palpitations, No Orthopnea, No Paroxysmal Noc. Dyspnea, No Edema, No Lt Headedness, No Other Respiratory: No Cough, No Dry, No Shortness of breath, No SOB with excertion, No Wheezing, No Hemoptysis, No Pleuritic Pain, No Sputum, No Other Gastrointestinal: No Nausea, No Vomiting; Abdominal Pain; No Diarrhea, No Constipation, No Melena, No Hematochezia, No Other Genitourinary: No Dysuria, No Frequency, No Incontinence, No Hematuria, No Retention, No Other Musculoskeletal: No other, No neck pain, No shoulder pain, No arm pain, No back pain, No hand pain, No leg pain, No foot pain Skin: No Rash, No Lesions, No Jaundice, No Bruising, No Other Objective Vitals Vital Signs Date Time Temp Pulse Resp B/P (MAP) Pulse Ox O2 Delivery O2 Flow Rate FiO2 03/29/24 10:38 71 18 96 Nasal Cannula* 2 28 03/29/24 10:38 99.3 123/75 (91) 99.3 Intake/Output Intake and Output 03/29/24 07:00 Intake Total 4775 ml Balance 4775 ml Intake IV Total 4775 ml General Appearance: Alert, Cooperative, No acute distress HEENT: Atraumatic, PERRLA, EOMI, Mucous membr. moist/pink Neck: Supple Lungs: Clear to auscultation, Normal air movement Cardiovascular: Regular rate, Normal S1, Normal S2, No murmurs, Gallops, Rubs Abdomen: Normal bowel sounds, Soft Neuro: Cranial nerves 3-12 NL Psych/Mental Status: Mental status NL Medications Current Medications Medications Dose Ordered Sig/Destiney Route Start Time Stop Time Status Last Admin Dose Admin Sodium Chloride 10 ml Q8HR IV 03/28/24 14:00 03/29/24 06:15 10 ML Acetaminophen/ Hydrocodone Bitart 1 tab Q4HP PRN PO 03/28/24 08:15 03/29/24 09:30 1 TAB Ondansetron HCl 4 mg Q4HP PRN IV 03/28/24 08:15 Docusate Sodium 100 mg BIDPRN PRN PO 03/28/24 08:15 Nitroglycerin 0.4 mg Q5MINP PRN SL 03/28/24 08:15 Morphine Sulfate 2 mg Q30M PRN IV 03/28/24 08:15 Diagnostic Test (Pha) 1 strip Q6HR 03/28/24 12:00 03/29/24 06:14 1 STRIP Insulin Human Regular Q6HR SC 03/28/24 12:00 03/28/24 12:38 3 UNITS Dextrose 50 ml UD PRN IV 03/28/24 08:15 Trazodone HCl 100 mg HSPRN PRN PO 03/28/24 08:15 Patient Own Medication 1 tab DAILY PO 03/28/24 10:00 UNV Patient Own Medication 10 mg HS PO 03/28/24 22:00 UNV Patient Own Medication 1 tab DAILY PO 03/28/24 10:00 UNV Patient Own Medication 1 puff BID IN 03/28/24 10:00 03/28/24 00:20 1 PUFF Patient Own Medication 15 ml BID PO 03/28/24 10:00 UNV Patient Own Medication 1 tab DAILY PO 03/28/24 10:00 UNV Patient Own Medication 1 tab TID PO 03/28/24 14:00 03/29/24 06:15 1 TAB Furosemide 20 mg BIDD IV 03/28/24 18:00 03/28/24 18:30 20 MG Duloxetine HCl 60 mg DAILY PO 03/28/24 10:00 03/29/24 09:30 60 MG Atorvastatin Calcium 10 mg HS PO 03/28/24 22:00 03/28/24 22:21 10 MG Lactulose 15 ml BID PO 03/28/24 10:00 03/29/24 09:31 15 ML Sodium Chloride 1,000 ml @ 125 mls/hr Q8H IV 03/28/24 10:00 03/29/24 09:47 125 MLS/HR Ceftriaxone Sodium 50 ml @ 100 mls/hr DAILY@09 IV 03/29/24 09:00 03/29/24 09:45 100 MLS/HR Vancomycin HCl 0 ml @ 0 mls/hr UD IV 03/28/24 10:00 Vancomycin HCl 250 ml @ 250 mls/hr Q12H IV 03/29/24 00:00 03/29/24 00:20 250 MLS/HR Laboratory Results Laboratory Tests 03/29/24 03:57 Chemistry Test 03/29/24 03:57 Albumin 3.3 g/dL (3.2-4.8) Calcium Level 9.1 mg/dL (8.7-10.4) Total Protein 6.2 g/dL (5.7-8.2) LFT Test 03/29/24 03:57 Alanine Aminotransferase (ALT) 81 U/L (7-40) H Alkaline Phosphatase 176 U/L (46-116) H Aspartate Amino Transferase (AST) 91 U/L (13-40) H Total Bilirubin 5.6 mg/dL (0.2-1.0) H Urinalysis Test 03/28/24 04:00 Urine Color Dark-yellow (Yellow) Urine Clarity Clear (Clear) Urine pH 6.0 (5.0-9.0) Urine Specific [place] 1.020 (1.001-1.035) Urine Protein 1+ (Negative) H Urine Ketones Trace (Negative) Urine Blood 1+ /uL (Negative) H Urine Nitrite Negative (Negative) Urine Bilirubin 2+ (Negative) Urine Urobilinogen 6 mg/dL (Negative) Urine Leukocyte Esterase Negative /uL (Negative) Urine RBC 11 /hpf (0 - 3) Urine Microscopic WBC 2 /HPF (0-3) Urine Squamous Epithelial Cells Few /hpf (<5) Urine Bacteria None seen /hpf (None Seen) Urine Glucose Normal mg/dL (Normal) Microbiology Microbiology Date/Time Source Procedure Growth Status 03/28/24 04:03 Blood Blood Culture - Preliminary Resulted Labs and/or images reviewed: Labs reviewed by me Assessment/Plan Assessment/Plan Hepatic encephalopathy, Liver cancer with possible metastasis, Possible Cholelithiasis, Right renal mass, Lactic acidosis, Possible sepsis, Enlarged lymph nodes, hypertension, Diabetes, Hyperlipidemia, Plan: Continuing current management. Continuing with IV fluid. I will restart food with cardiac diet and carb controlled diabetic diet. We will follow up with blood culture and urine culture Continuing Accu-Chek and sliding scale insulin Waiting for ammonia level and we will start lactulose MRCP GI consult This medical document was created using an electronic medical record system with [employer] direct computerized dictation system. Although this document has been carefully reviewed, there may still be some phonetic and typographical errors. These areas are purely typographical due to imperfections of the software programs, and do not reflect any compromise in the patient's medical care. Plan discussed with: Patient, Daughter Date of Service: Mar 29, 2024 Billing Provider: STONE MAHMOOD MD Common Visit Codes: [id number] INP/OBS CARE(HIGH) STONE MAHMOOD MD Mar 29, 2024 11:43
[2024-03-30] VITALS (8 sets, daily range): BP systolic 136–181; BP diastolic 53–98; PULSE 72–92; RESP 18–72; TEMP 97.4–98.1; O2SAT 94–99
[2024-03-30] MEDS: OXYCODONE W/ ACETAMINOPHEN 5/325MG TABLET PO ONE (01:23)
[2024-03-30 07:34] LABS: Basophils # (auto) 0 10 ^3/uL (0-0.2); Basophils % (auto) 0.3 % (0.0-2.0); Eosinophils # (auto) 0 10 ^3/uL (0-0.8); Hemoglobin 12.9 g/dL (13.5-17.5); Monocytes % (auto) 5.5 % (0.0-12.0)
[2024-03-30 07:36] LABS: Eosinophils % (auto) 0.7 % (0.0-7.0); Hematocrit 38.4 % (41.0-53.0); Lymphocytes # (auto) 0.4 10 ^3/uL (0.4-5.4); Lymphocytes % (auto) 5.7 % (10.0-50.0); Mean Corpuscular Hemoglobin 29.2 pg (28.0-32.0); Mean Corpuscular Hgb Conc. 33.8 g/dL (32.0-36.0); Mean Corpuscular Volume 86.5 fL (80.0-100.0); Monocytes # (auto) 0.3 10 ^3/uL (0-1.3); Neutrophils # (auto) 5.5 10 ^3/uL (1.6-8.6); Neutrophils % (auto) 87.8 % (37.0-80.0); Platelet Count (auto) 61 10^3/uL (140-450); Red Blood Cells 4.44 10^6/uL (4.5-5.90); Red Cell Distribution Width 15.2 % (11.8-14.3); White Blood Cell 6.3 10^3/uL (4.4-10.8)
[2024-03-30 07:52] LABS: Potassium 3.7 mmol/L (3.5-5.1)
[2024-03-30 07:53] LABS: Anion Gap 9 (5-15)
[2024-03-30 07:58] LABS: BUN/Creatinine Ratio 26.4 (10.0-20.0); Blood Urea Nitrogen 19 mg/dL (9-23)
[2024-03-30 08:00] LABS: Calcium 8.7 mg/dL (8.7-10.4); Carbon Dioxide 31 mmol/L (20-31); Chloride 95 mmol/L (98-107); Glucose 130 mg/dL (74-106); Sodium 135 mmol/L (136-145)
--- NOTE | 2024-03-30 12:30 | DVHCONRES ---
Date Seen: Mar 30, 2024 Resident Creating Document: BLANCA MCKEON RESIDENT Referring Physician MD Leena Reason for Consultation Hepatic encephalopathy History of Present Illness Jonny Carter is a 68-year-old male with past medical history of diabetes, hypertension, sleep apnea, hyperlipidemia, liver cirrhosis, and liver cancer, who came in for abdominal pain and ALOC. Patient lives with his daughter. She states he is usually independent with all his ADL's. This morning she found him confused, unable to get out of the bathroom and he had urinated on himself. Lactic acid level is elevated in ER. Patient was seen and examined on the bedside. He is alert oriented x3. Complaint of abdominal pain and distention. No other active complaint. Allergies: Coded Allergies: NO KNOWN ALLERGIES (Unverified , 03/28/24) Home Meds Reported Medications Oxycodone Hcl (OXYCODONE HCL) 5 Mg Tb, 15 MG PO TID, TAB 03/30/24 Omeprazole (Omeprazole Dr) 20 Mg Cap, 1 DAILY 03/30/24 Lactulose (Lactulose) 10 Gm/15 Ml Kimberly, 15 ML PO BID 03/28/24 Duloxetine HCl (Duloxetine HCl) 60 Mg Cap, 1 TAB PO DAILY 03/28/24 Metformin Hydrochloride (Metformin Hcl) 500 Mg Tab, 1 TAB PO BID 03/28/24 Fluticasone Furoate-Vilanterol (BREO ELLIPTA) 1 Inh Inh, 1 PUFF INH BID 03/28/24 Trazodone Hcl (Trazodone Hcl) 50 Mg Tab, 2 TAB PO HSPRN PRN 03/28/24 Furosemide (Furosemide) 20 Mg Tab, 1 TAB PO DAILY 03/28/24 Atenolol (Atenolol) 100 Mg Tab, 1 TAB PO DAILY 03/28/24 Atorvastatin Calcium (Lipitor) 10 Mg Tab, 10 MG PO HS 03/28/24 Tizanidine Hydrochloride (Tizanidine Hcl) 4 Mg Tab, 1 TAB PO TID 03/28/24 Lisinopril (Lisinopril) 40 Mg Tab, 1 TAB PO DAILY 03/28/24 Vital Signs Vital Signs Date Time Temp Pulse Resp B/P (MAP) Pulse Ox O2 Delivery O2 Flow Rate FiO2 03/30/24 11:00 93 10 178/93 (121) 96 03/30/24 07:24 97.5 97.5 03/30/24 07:24 Nasal Cannula* 3 32 Physical Exam Physical examination: General Appearance: Alert, Oriented X3, Cooperative, No acute distress HEENT: Atraumatic, PERRLA, EOMI, Mucous membrane moist/pink Respiratory: Clear to auscultation, Normal air movement Cardiovascular: Regular rate, Normal S1, Normal S2, No murmurs, no chest wall tenderness Abdominal: Abdomen is distended, normal bowel sounds, Soft, No tenderness, No hepatospenomegaly, No masses Extremities: No clubbing, No cyanosis, No edema, Normal pulses, No tenderness/swelling Skin: No rashes, No breakdown, No significant lesion Neuro: Normal gait, Normal speech, Strength at 5/5 X4 ext, Normal tone, Sensation intact, Cranial nerves 3-12 NL, Reflexes 2+ Psych/Mental Status: Mental status NL, Mood NL Labs/Diagnostic Data Labs Test 03/30/24 07:11 03/30/24 05:23 03/29/24 23:00 03/29/24 03:57 Range/Units White Blood Count 6.3 # 4.4-10.8 10^3/uL Red Blood Count 4.44 L 4.5-5.90 10^6/uL Hemoglobin 12.9 L 13.5-17.5 g/dL Hematocrit 38.4 L 41.0-53.0 % Mean Corpuscular Volume 86.5 80.0-100.0 fL Mean Corpuscular Hemoglobin 29.2 28.0-32.0 pg Mean Corpuscular Hemoglobin Concent 33.8 32.0-36.0 g/dL Red Cell Distribution Width 15.2 H 11.8-14.3 % Platelet Count 61 L 140-450 10^3/uL Mean Platelet Volume 9.1 6.9-10.8 fL Neutrophils (%) (Auto) 87.8 H 37.0-80.0 % Lymphocytes (%) (Auto) 5.7 L 10.0-50.0 % Monocytes (%) (Auto) 5.5 0.0-12.0 % Eosinophils (%) (Auto) 0.7 0.0-7.0 % Basophils (%) (Auto) 0.3 0.0-2.0 % Neutrophils # (Auto) 5.5 1.6-8.6 10 ^3/uL Lymphocytes # (Auto) 0.4 0.4-5.4 10 ^3/uL Monocytes # (Auto) 0.3 0-1.3 10 ^3/uL Eosinophils # (Auto) 0 0-0.8 10 ^3/uL Basophils # (Auto) 0 0-0.2 10 ^3/uL Nucleated Red Blood Cells 0.0 % Sodium Level 135 L 136-145 mmol/L Potassium Level 3.7 3.5-5.1 mmol/L Chloride Level 95 L 98-107 mmol/L Carbon Dioxide Level 31 20-31 mmol/L Anion Gap 9 5-15 Blood Urea Nitrogen 19 9-23 mg/dL Creatinine 0.72 0.700-1.30 mg/dL Glomerular Filtration Rate Calc 99 >90 mL/min BUN/Creatinine Ratio 26.4 H 10.0-20.0 Serum Glucose 130 H 74-106 mg/dL Calcium Level 8.7 8.7-10.4 mg/dL Ammonia < 10 L 11-32 umol/L POC Glucose 151 H 70-106 mg/dl Vancomycin Level Trough 13.7 H 5-10 ug/mL Total Bilirubin 5.6 H 0.2-1.0 mg/dL Aspartate Amino Transferase (AST) 91 H 13-40 U/L Alanine Aminotransferase (ALT) 81 H 7-40 U/L Alkaline Phosphatase 176 H 46-116 U/L Total Protein 6.2 5.7-8.2 g/dL Albumin 3.3 3.2-4.8 g/dL Test 03/28/24 07:18 03/28/24 05:59 03/28/24 05:55 03/28/24 04:03 Range/Units Troponin I High Sensitivity 60 *H </=54 ng/L Influenza Type A Antigen Negative Negative Influenza Type B Antigen Negative Negative SARS-CoV-2 Antigen (Rapid) Negative NEGATIVE Lactic Acid Level 4.8 *H 0.4-2.0 mmol/L Platelet Estimate Decreased Prothrombin Time 14.0 H 9.3-11.8 sec Prothrombin Time INR 1.36 H 0.9-1.15 Activated Partial Thromboplast Time 30.1 24.5-34.5 SEC Hemoglobin A1c 5.7 <5.7 % A1C Lipase 30 12-53 U/L Test 03/28/24 04:00 Range/Units Urine Color Dark-yellow Yellow Urine Clarity Clear Clear Urine pH 6.0 5.0-9.0 Urine Specific [place] 1.020 1.001-1.035 Urine Protein 1+ H Negative Urine Ketones Trace Negative Urine Blood 1+ H Negative /uL Urine Nitrite Negative Negative Urine Bilirubin 2+ Negative Urine Urobilinogen 6 Negative mg/dL Urine Leukocyte Esterase Negative Negative /uL Urine RBC 11 0 - 3 /hpf Urine Microscopic WBC 2 0-3 /HPF Urine Squamous Epithelial Cells Few <5 /hpf Urine Bacteria None seen None Seen /hpf Urine Glucose Normal Normal mg/dL Microbiology Date/Time Source Procedure Growth Status 03/28/24 04:03 Blood Blood Culture - Final Escherichia coli Complete 03/28/24 04:00 Voided Urine Urine Culture - Final Proteus mirabilis Complete Assessment Assessment: # Alcoholic liver cirrhosis # Hepatic encephalopathy # Coagulopathy and thrombocytopenia likely due to cirrhosis # Hyperbilirubinemia with transaminitis likely due to cirrhosis # Cholelithiasis # Possible Liver cancer # Possible renal malignancy # Acute on chronic CHF # Sepsis Plan: - cardiac diet - H&H stable - Ammonia is normal now - driss Jimenez discriminant function for alcoholic hepatitis 15.7, good prognosis - Continue lactulose 15 mL b.i.d. - Continue IV antibiotics and other management for sepsis as per primary - Pending FOBT, hepatitis panel and MRI of the abdomen to rule out metastasis disease - Protonix 40 mg p.o. daily - We will follow this patient Plan discussed with Dr. Shaw Plan discussed with: Patient, Other BLANCA MCKEON RESIDENT Mar 30, 2024 12:30
[2024-03-30] MEDS ORDERED: OMEP1CAP70 (17:02)
[2024-03-30] MEDS ORDERED: OXY5T PO (17:04)
[2024-03-30] MEDS: OXYCODONE W/ ACETAMINOPHEN 5/325MG TABLET PO PRN (17:50)
--- NOTE | 2024-03-30 20:12 | DVH ---
[id number] MRI MRI ABDOMEN NO CONTRAST Attending Name: JOHNSJANUARY Ritchie COMPARISON: Ultrasound dated 03/28/2024, CT scan dated 03/28/2024 INDICATION: F/U CT GALLSTONES, RULE OUT MALIGNANCY TECHNIQUE: MRCP was performed without the use of intravenous contrast using a MRI imaging system. Three-dimensional MRCP was performed using maximum intensity projection reconstruction on an [employer] workstation under concurrent supervision. FINDINGS: Dilated CBD measuring 1.3 cm in caliber. 2 calculi are seen in the distal CBD each measuring 7 mm. Ga llbladder is moderately distended containing sludge and tiny calculi. There is mild gallbladder wall thickening and pericholecystic fluid. Intrahepatic ductal dilatation noted. Cirrhotic liver morphology. No discrete lesion in limited unenhanced study. Moderate splenomegaly. Small ascites. Mural thickening and pericolonic inflammation noted surrounding the ascending colon. Scattered coloni c diverticula in the descending and sigmoid colon. No evidence of bowel obstruction. The kidneys and adrenal glands are unremarkable. Pancreas is grossly unremarkable. IMPRESSION: 1. Intrahepatic and extrahepatic ductal dilatation due to 2 obstructing calculi in distal CBD each me asuring 7 mm. 2. Gallbladder sludge, tiny 3. Calculi, gallbladder wall thickening and pericholecystic fluid. Recommend clinical and biochemical correlation to rule out cholecystitis. Gallbladder wall thickening could be related to hepatocellula r dysfunction. 4. Cirrhosis with evidence of portal hypertension small amount of ascites. 5. Circumferential mural thickening of the ascending colon that could reflect colitis or infiltrative marrow lesion. Recommend clinical and biochemical correlation follow-up to ensure resolution and phylicia ignity.
[2024-03-30] MEDS: traZODone HCL 50 MG TAB PO PRN (22:26)
[2024-03-31] VITALS (8 sets, daily range): BP systolic 108–169; BP diastolic 68–101; PULSE 65–131; RESP 18–19; TEMP 97.8–98.3; O2SAT 90–96
[2024-03-31 05:24] LABS: Anion Gap 11 (5-15); Carbon Dioxide 23 mmol/L (20-31)
[2024-03-31 05:27] LABS: BUN/Creatinine Ratio 15.9 (10.0-20.0)
[2024-03-31 05:34] LABS: Alanine Aminotransferase 78 U/L (7-40); Albumin 3.2 g/dL (3.2-4.8); Alkaline Phosphatase 347 U/L (46-116); Aspartate Aminotransferase 134 U/L (13-40); Bilirubin, Total 8.9 mg/dL (0.2-1.0); Blood Urea Nitrogen 10 mg/dL (9-23); Calcium 8.5 mg/dL (8.7-10.4); Chloride 95 mmol/L (98-107); Glucose 134 mg/dL (74-106); Potassium 3.8 mmol/L (3.5-5.1); Sodium 129 mmol/L (136-145)
[2024-03-31] MEDS: PANTOPRAZOLE 40 MG TAB PO SCH (06:13)
[2024-03-31 10:40] LABS: Basophils # (auto) 0 10 ^3/uL (0-0.2); Basophils % (auto) 0.5 % (0.0-2.0); Eosinophils # (auto) 0 10 ^3/uL (0-0.8); Eosinophils % (auto) 0.5 % (0.0-7.0); Hematocrit 39.5 % (41.0-53.0); Hemoglobin 13.4 g/dL (13.5-17.5); Lymphocytes # (auto) 0.5 10 ^3/uL (0.4-5.4); Lymphocytes % (auto) 6.9 % (10.0-50.0); Mean Corpuscular Hgb Conc. 33.9 g/dL (32.0-36.0); Mean Corpuscular Volume 85.4 fL (80.0-100.0); Monocytes # (auto) 0.7 10 ^3/uL (0-1.3); Monocytes % (auto) 10.1 % (0.0-12.0); Neutrophils # (auto) 5.8 10 ^3/uL (1.6-8.6); Platelet Count (auto) 61 10^3/uL (140-450); Red Blood Cells 4.63 10^6/uL (4.5-5.90); Red Cell Distribution Width 14.6 % (11.8-14.3); White Blood Cell 7.1 10^3/uL (4.4-10.8)
--- NOTE | 2024-03-31 12:08 | DVHPN2 ---
Progress Note Date Seen: Mar 31, 2024 Resident Creating Document: BLANCA MCKEON RESIDENT Medical Necessity Reason Pt with a Central, PICC or Fol: Yes Subjective Review of Systems Patient was seen and examined the bedside. He is alert oriented x3. He looks yellowish and complaining of diffuse abdominal pain and nausea. No bowel movement since yesterday. No other active complaint. MRI of the abdomen revealed Intrahepatic and extrahepatic ductal dilatation due to 2 obstructing calculi in distal CBD each measuring 7 mm. Patient needs to transfer to higher level of care for ERCP for symptomatic choledocholithiasis and consulted psychiatric social worker to work on the transfer . Objective vital signs Vital Sign Date Time Temp Pulse Resp B/P (MAP) Pulse Ox O2 Delivery O2 Flow Rate FiO2 03/31/24 08:47 97.9 65 18 143/75 (97) 94 97.9 03/31/24 08:00 Nasal Cannula* 3 32 Total Intake and Output 03/30/24 03/30/24 03/31/24 15:00 23:00 07:00 Intake Total 800 ml 950 ml 1000 ml Output Total 1500 ml 515 ml Balance -700 ml 435 ml 1000 ml medications Current Medications Medications Dose Ordered Sig/Destiney Route Start Time Stop Time Status Last Admin Dose Admin Sodium Chloride 10 ml Q8HR IV 03/28/24 14:00 03/31/24 06:13 10 ML Ondansetron HCl 4 mg Q4HP PRN IV 03/28/24 08:15 Docusate Sodium 100 mg BIDPRN PRN PO 03/28/24 08:15 Nitroglycerin 0.4 mg Q5MINP PRN SL 03/28/24 08:15 Morphine Sulfate 2 mg Q30M PRN IV 03/28/24 08:15 Diagnostic Test (Pha) 1 strip Q6HR 03/28/24 12:00 03/31/24 11:47 1 STRIP Insulin Human Regular Q6HR SC 03/28/24 12:00 03/31/24 11:48 2 UNITS Dextrose 50 ml UD PRN IV 03/28/24 08:15 Trazodone HCl 100 mg HSPRN PRN PO 03/28/24 08:15 03/30/24 22:26 100 MG Patient Own Medication 1 tab DAILY PO 03/28/24 10:00 UNV Patient Own Medication 10 mg HS PO 03/28/24 22:00 UNV Patient Own Medication 1 tab DAILY PO 03/28/24 10:00 UNV Patient Own Medication 1 puff BID IN 03/28/24 10:00 03/29/24 12:34 1 PUFF Patient Own Medication 15 ml BID PO 03/28/24 10:00 UNV Patient Own Medication 1 tab DAILY PO 03/28/24 10:00 UNV Patient Own Medication 1 tab TID PO 03/28/24 14:00 03/30/24 13:10 1 TAB Furosemide 20 mg BIDD IV 03/28/24 18:00 03/31/24 06:13 20 MG Duloxetine HCl 60 mg DAILY PO 03/28/24 10:00 03/31/24 10:13 60 MG Atorvastatin Calcium 10 mg HS PO 03/28/24 22:00 03/30/24 22:19 10 MG Lactulose 15 ml BID PO 03/28/24 10:00 03/31/24 10:13 15 ML Sodium Chloride 1,000 ml @ 125 mls/hr Q8H IV 03/28/24 10:00 03/31/24 04:31 125 MLS/HR Ceftriaxone Sodium 50 ml @ 100 mls/hr DAILY@09 IV 03/29/24 09:00 03/31/24 10:13 100 MLS/HR Vancomycin HCl 0 ml @ 0 mls/hr UD IV 03/28/24 10:00 Vancomycin HCl 250 ml @ 250 mls/hr Q12H IV 03/29/24 00:00 03/31/24 12:00 250 MLS/HR Oxycodone/ Acetaminophen 2 tab Q6HP PRN PO 03/30/24 14:30 03/31/24 10:14 2 TAB Pantoprazole Sodium 40 mg DAILY@0600 PO 03/31/24 06:00 03/31/24 06:13 40 MG Examination Physical examination: General Appearance: Alert, Oriented X3, Cooperative, mild distress HEENT: Atraumatic, PERRLA, EOMI, Mucous membrane moist/pink Respiratory: Clear to auscultation, Normal air movement Cardiovascular: Regular rate, Normal S1, Normal S2, No murmurs, no chest wall tenderness Abdominal: Tenderness in the epigastric region, Normal bowel sounds, No hepatospenomegaly, No masses Extremities: No clubbing, No cyanosis, No edema, Normal pulses, No tenderness/swelling Skin: No rashes, No breakdown, No significant lesion Neuro: Normal gait, Normal speech, Strength at 5/5 X4 ext, Normal tone, Sensation intact,grossly intact cranial nerves. Psych/Mental Status: Mental status NL, Mood NL laboratory and microbiology Laboratory Tests 03/31/24 10:31 03/31/24 04:32 Test 03/31/24 04:32 Range/Units Serum Glucose 134 H 74-106 mg/dL Microbiology Date/Time Source Procedure Growth Status 03/29/24 12:53 Nose MRSA Screen - Final Complete 03/28/24 04:03 Blood Blood Culture - Final Escherichia coli Complete 03/28/24 04:00 Voided Urine Urine Culture - Final Proteus mirabilis Complete Labs and/or images reviewed: Labs reviewed by me, Image(s) reviewed by me Problem List/Assessment/Plan Problem List/Assessment/Plan Assessment: # Alcoholic liver cirrhosis # Hepatic encephalopathy # Coagulopathy and thrombocytopenia likely due to cirrhosis # Hyperbilirubinemia with transaminitis likely due to choledocholithiasis # Cholelithiasis with choledocholithiasis # Possible Liver cancer # Possible renal malignancy # Acute on chronic CHF # Sepsis # NSTEMI type 2 due to above MRI of the abdomen demonstrated Intrahepatic and extrahepatic ductal dilatation due to 2 obstructing calculi in distal CBD each measuring 7 mm Plan: - Cardiac diet - H&H stable - Patient needs to transfer to [facility] for ERCP for symptomatic choledocholithiasis - Consulted psychiatric social worker for transfer to [facility]. - Ammonia is normal now - Lanredreys discriminant function for alcoholic hepatitis 15.7, good prognosis - Continue lactulose 15 mL b.i.d. - Continue IV antibiotics and other management for sepsis as per primary - Pending FOBT, hepatitis panel . - Protonix 40 mg p.o. daily - We will follow this patient Plan discussed with Dr. Shaw Plan discussed with: Patient, Other My Orders My Orders Orders - BLANCA MCKEON Procedure Category Date Status Time Comprehensive LAB 03/30/24 In Process Hepatitis Panel 17:09 Stool Occult Blood LAB 03/31/24 Logged 07:36 Pantoprazole Tablet PHA 03/31/24 In Process (Protonix Tablet) 06:00 * Fulfillment Specialist CONS 03/31/24 Verified Consult BLANCA MCKEON RESIDENT Mar 31, 2024 12:08
[2024-04-01] VITALS (11 sets, daily range): BP systolic 121–162; BP diastolic 72–101; PULSE 69–154; RESP 16–19; TEMP 97.4–99; O2SAT 94–96
[2024-04-01] MEDS: DOCUSATE SOD 100 MG CAP PO PRN (17:18)
[2024-04-02] VITALS (9 sets, daily range): BP systolic 139–155; BP diastolic 79–101; PULSE 63–145; RESP 17–20; TEMP 97.6–98.4; O2SAT 90–100
[2024-04-02] MEDS: SODIUM CHLORIDE 0.9% 500 ML IV ONE (06:00)
--- NOTE | 2024-04-02 06:03 | ECG ---
[facility] Test Date: 2024-04-02 Test Time: 04:57:22 Pat Name: MANUEL ARZATE Department: Room: 0291T B Gender: M Research Technologist: bruna REYES : 1955 Requested By: MOODY TAVERAS Order Number: [id number] Reading MD: Jay Carlos Measurements Intervals [place] Rate: 146 P: 239 VT: 96 QRS: -66 QRSD: 92 T: 46 QT: 316 QTc: 493 Interpretive Statements Ectopic atrial tachycardia LAD, consider left anterior fascicular block Low voltage, precordial leads RSR' in V1 or V2, right VCD or RVH Borderline prolonged QT interval Electronically Signed On 04-04-2024 21:30:39 PST by Jay Carlos Please click the below link to view image of tracing.
[2024-04-02 07:31] LABS: Anion Gap 11 (5-15); Calcium 9.4 mg/dL (8.7-10.4); Carbon Dioxide 28 mmol/L (20-31)
[2024-04-02 07:37] LABS: BUN/Creatinine Ratio 15.9 (10.0-20.0); Blood Urea Nitrogen 11 mg/dL (9-23)
[2024-04-02 07:56] LABS: Chloride 93 mmol/L (98-107); Glucose 116 mg/dL (74-106); Potassium 3.1 mmol/L (3.5-5.1); Sodium 132 mmol/L (136-145)
[2024-04-02 09:53] LABS: Basophils # (auto) 0.1 10 ^3/uL (0-0.2); Eosinophils # (auto) 0.1 10 ^3/uL (0-0.8); Eosinophils % (auto) 1.6 % (0.0-7.0); Hematocrit 40.6 % (41.0-53.0); Hemoglobin 13.6 g/dL (13.5-17.5); Lymphocytes # (auto) 0.7 10 ^3/uL (0.4-5.4); Lymphocytes % (auto) 8.9 % (10.0-50.0); Mean Corpuscular Hemoglobin 28.3 pg (28.0-32.0); Mean Corpuscular Hgb Conc. 33.4 g/dL (32.0-36.0); Mean Corpuscular Volume 84.7 fL (80.0-100.0); Monocytes # (auto) 0.9 10 ^3/uL (0-1.3); Monocytes % (auto) 10.9 % (0.0-12.0); Neutrophils # (auto) 6.1 10 ^3/uL (1.6-8.6); Neutrophils % (auto) 77.6 % (37.0-80.0); Nucleated Red Blood Cells % 0.1 %; Platelet Count (auto) 120 10^3/uL (140-450); Red Cell Distribution Width 14.9 % (11.8-14.3); White Blood Cell 7.9 10^3/uL (4.4-10.8)
[2024-04-02 10:08] LABS: Anion Gap 9 (5-15); BUN/Creatinine Ratio 13.8 (10.0-20.0); Blood Urea Nitrogen 9 mg/dL (9-23); Carbon Dioxide 30 mmol/L (20-31)
[2024-04-02 10:09] LABS: Albumin 3.3 g/dL (3.2-4.8); Total Protein 6.4 g/dL (5.7-8.2)
[2024-04-02 10:11] LABS: Alanine Aminotransferase 128 U/L (7-40); Alkaline Phosphatase 528 U/L (46-116); Aspartate Aminotransferase 204 U/L (13-40); Bilirubin, Total 7.4 mg/dL (0.2-1.0); Calcium 8.6 mg/dL (8.7-10.4); Chloride 94 mmol/L (98-107); Glucose 124 mg/dL (74-106); Potassium 3.1 mmol/L (3.5-5.1); Sodium 133 mmol/L (136-145)
--- NOTE | 2024-04-02 10:34 | DVHPN2 ---
Progress Note - Dictate Date Seen: Apr 02, 2024 Medical Necessity Reason Pt with a Central, PICC or Fol: Yes Subjective Patient is resting comfortably at this time and sleeping Patient is currently on a soft diet Patient was having moderate pain requiring pain medicines and yesterday had some tachycardia because of pain vital signs Vital Sign Date Time Temp Pulse Resp B/P (MAP) Pulse Ox O2 Delivery O2 Flow Rate FiO2 04/02/24 09:17 98.4 117 20 145/101 (116) 100 98.4 04/01/24 20:00 Nasal Cannula* 2 28 Total Intake and Output 04/01/24 04/01/24 04/02/24 15:00 23:00 07:00 Intake Total 1050 ml 1300 ml 600 ml Output Total 300 ml 650 ml Balance 1050 ml 1000 ml -50 ml medications Current Medications Medications Dose Ordered Sig/Destiney Route Start Time Stop Time Status Last Admin Dose Admin Sodium Chloride 10 ml Q8HR IV 03/28/24 14:00 04/02/24 06:00 10 ML Ondansetron HCl 4 mg Q4HP PRN IV 03/28/24 08:15 Docusate Sodium 100 mg BIDPRN PRN PO 03/28/24 08:15 04/02/24 09:46 100 MG Nitroglycerin 0.4 mg Q5MINP PRN SL 03/28/24 08:15 Morphine Sulfate 2 mg Q30M PRN IV 03/28/24 08:15 Diagnostic Test (Pha) 1 strip Q6HR 03/28/24 12:00 04/02/24 06:00 1 STRIP Insulin Human Regular Q6HR SC 03/28/24 12:00 04/01/24 17:30 2 UNITS Dextrose 50 ml UD PRN IV 03/28/24 08:15 Trazodone HCl 100 mg HSPRN PRN PO 03/28/24 08:15 04/01/24 22:01 100 MG Patient Own Medication 1 tab DAILY PO 03/28/24 10:00 UNV Patient Own Medication 10 mg HS PO 03/28/24 22:00 UNV Patient Own Medication 1 tab DAILY PO 03/28/24 10:00 UNV Patient Own Medication 1 puff BID IN 03/28/24 10:00 03/29/24 12:34 1 PUFF Patient Own Medication 15 ml BID PO 03/28/24 10:00 UNV Patient Own Medication 1 tab DAILY PO 03/28/24 10:00 UNV Patient Own Medication 1 tab TID PO 03/28/24 14:00 03/30/24 13:10 1 TAB Furosemide 20 mg BIDD IV 03/28/24 18:00 04/02/24 06:32 20 MG Duloxetine HCl 60 mg DAILY PO 03/28/24 10:00 04/02/24 09:47 60 MG Atorvastatin Calcium 10 mg HS PO 03/28/24 22:00 04/01/24 21:57 10 MG Lactulose 15 ml BID PO 03/28/24 10:00 04/02/24 09:45 15 ML Ceftriaxone Sodium 50 ml @ 100 mls/hr DAILY@09 IV 03/29/24 09:00 04/02/24 09:51 100 MLS/HR Vancomycin HCl 0 ml @ 0 mls/hr UD IV 03/28/24 10:00 Vancomycin HCl 250 ml @ 250 mls/hr Q12H IV 03/29/24 00:00 04/02/24 00:05 250 MLS/HR Oxycodone/ Acetaminophen 2 tab Q6HP PRN PO 03/30/24 14:30 04/02/24 06:40 2 TAB Pantoprazole Sodium 40 mg DAILY@0600 PO 03/31/24 06:00 04/02/24 06:32 40 MG objective General Appearance: Alert, Oriented X3; sleeping HEENT: Atraumatic, PERRLA, EOMI, Mucous membrane moist/pink Respiratory: Clear to auscultation, Normal air movement Cardiovascular: Regular rate, Normal S1, Normal S2, No murmurs, no chest wall tenderness Abdominal: Tenderness in the epigastric region, Normal bowel sounds, No hepatospenomegaly, No masses; obese Extremities: No clubbing, No cyanosis, No edema, Normal pulses, No tenderness/swelling Skin: No rashes, No breakdown, No significant lesion laboratory and microbiology Laboratory Tests 04/02/24 09:27 Test 04/02/24 09:27 Range/Units Serum Glucose 124 H 74-106 mg/dL Problems(with codes): (1) Choledocholithiasis (2) Hepatic encephalopathy (3) Sepsis (4) Right upper quadrant pain (5) Cirrhosis (6) Cholelithiasis NOS (7) Elevated liver enzymes (8) Portal hypertension (9) Hyperbilirubinemia (10) Liver cancer Prognosis Plan: - Cardiac diet - Patient needs to transfer to [facility] for ERCP for symptomatic choledocholithiasis - Consulted social and political studies professor for transfer to [facility]. - Ammonia is normal now; continue lactulose 15 mL p.o. twice a day - Tonys discriminant function for alcoholic hepatitis 15.7, good prognosis - Continue IV antibiotics and other management for sepsis as per primary - serum alpha fetoprotein elevated; hepatitis profile pending - Protonix 40 mg p.o. daily - We will follow this patient Plan discussed with: Patient, Other (Nurse) ELVIRA BENZ MD Apr 02, 2024 10:34
--- NOTE | 2024-04-02 11:53 | ECG ---
[facility] Test Date: 2024-04-02 Test Time: 11:51:42 Pat Name: MANUEL ARZATE Department: Room: 0291T B Gender: M Phlebotomist Prn: Helen REYES : 1955 Requested By: CARMENZA NELSON Order Number: [id number] Reading MD: Jay Carlos Measurements Intervals [place] Rate: 148 P: -20 WI: 165 QRS: -44 QRSD: 88 T: 53 QT: 316 QTc: 497 Interpretive Statements Sinus tachycardia Left anterior fascicular block Probable anterior infarct, age indeterminate Electronically Signed On 04-04-2024 21:31:02 PST by Jay Carlos Please click the below link to view image of tracing.
[2024-04-02] MEDS: METOPROLOL TARTRATE 1MG/1ML-5ML VIAL IV ONE (12:11)
[2024-04-02] MEDS: METOPROLOL TARTRATE 50 MG TAB PO ONE (12:12)
--- NOTE | 2024-04-02 12:50 | DVHINCON2 ---
Date Seen: Apr 02, 2024 Referring Physician nik Reason for Consultation Tachycardia History of Present Illness 68-year-old male with PMH for HTN, diabetes, HLD, liver cirrhosis, CHF, liver cancer who presents to the hospital abdominal patent altered level consciousness. Patient was admitted for hepatic encephalopathy possible cholelithiasis, right renal mass suspected sepsis. While on telemetry patient noted to have elevated heart rate in the 140s 160s. Initial EKG showed possible junctional versus multifocal atrial tachycardia, questionable atrial fibrillation. Patient denies any history cardiac problems, arrhythmias, or previous anticoagulation. Cardiology consulted. BNP is negative. Troponin initially trending negative x2 with 1 mild positive troponin of 60. Patient also noted to have thrombocytopenia with platelets as low as 61, 120 today. Elevated LFTs, potassium 3.1. Past Medical History HTN Liver cirrhosis CHF Diabetes Past Surgical History Denies previous cardiac surgeries Family History Denies pertinent family cardiac history Social History Denies alcohol, tobacco, or illicit drug use Allergies: Coded Allergies: NO KNOWN ALLERGIES (Unverified , 03/28/24) Home Meds Reported Medications Oxycodone Hcl (OXYCODONE HCL) 5 Mg Tb, 15 MG PO TID, TAB 03/30/24 Omeprazole (Omeprazole Dr) 20 Mg Cap, 1 DAILY 03/30/24 Lactulose (Lactulose) 10 Gm/15 Ml Kimberly, 15 ML PO BID 03/28/24 Duloxetine HCl (Duloxetine HCl) 60 Mg Cap, 1 TAB PO DAILY 03/28/24 Metformin Hydrochloride (Metformin Hcl) 500 Mg Tab, 1 TAB PO BID 03/28/24 Fluticasone Furoate-Vilanterol (BREO ELLIPTA) 1 Inh Inh, 1 PUFF INH BID 03/28/24 Trazodone Hcl (Trazodone Hcl) 50 Mg Tab, 2 TAB PO HSPRN PRN 03/28/24 Furosemide (Furosemide) 20 Mg Tab, 1 TAB PO DAILY 03/28/24 Atenolol (Atenolol) 100 Mg Tab, 1 TAB PO DAILY 03/28/24 Atorvastatin Calcium (Lipitor) 10 Mg Tab, 10 MG PO HS 03/28/24 Tizanidine Hydrochloride (Tizanidine Hcl) 4 Mg Tab, 1 TAB PO TID 03/28/24 Lisinopril (Lisinopril) 40 Mg Tab, 1 TAB PO DAILY 03/28/24 Current Medications Current Medications Medications (Trade) Dose Ordered Sig/Destiney Route PRN Reason Start Time Stop Time Status Last Admin Metoprolol Tartrate (Lopressor Tablet) 50 mg BID PO 04/02/24 22:00 Review of Systems Constitutional: No: Fever, Chills, Sweats, , Other positive: Weakness, Malaise Eyes: No: Pain, Vision change, Conjunctivae inflammation, Eyelid inflammation, Other, Redness ENT: No: Ear pain, Ear discharge, Nose pain, Nose discharge, Nose congestion, Mouth pain, Mouth swelling, Throat pain, Throat swelling, Other Respiratory: No: Cough, Dry,, Wheezing, Hemoptysis, Pleuritic Pain, Sputum, Wheezing, Other positive: Shortness of breath, SOB with exertion Cardiovascular: ; No: Chest Pain Palpitations, Orthopnea, Paroxysmal Noc. Dyspnea, Edema, Lt Headedness, Other Gastrointestinal: No: Nausea, Vomiting, Abdominal Pain, Diarrhea, Constipation, Melena, Hematochezia, Other Genitourinary: No Dysuria, No Frequency, No Incontinence, No Hematuria, No Retention, No Other Musculoskeletal: neck pain; No: other, shoulder pain, arm pain, back pain, hand pain, leg pain, foot pain Skin: No: Rash, Lesions, Jaundice, Bruising, Other Neurological: Other (Dizziness, headache.); No: Weakness, Numbness, Incoordination, Change in speech, Confusion, Seizures Vital Signs Vital Signs Date Time Temp Pulse Resp B/P (MAP) Pulse Ox O2 Delivery O2 Flow Rate FiO2 04/02/24 12:12 142 151/93 04/02/24 09:17 98.4 20 100 98.4 04/01/24 20:00 Nasal Cannula* 2 28 Physical Exam General appearance: Ill-appearing, in no acute distress. HEENT: Exam shows: Normocephalic, atraumatic, PERRLA, EOMI, anicteric sclera Neck: Supple, no bruits Chest: Equal chest excursion bilaterally. Breath sounds normal-no rales or wheezes. Heart: Rhythm: Regular/irregular, tachycardia; no murmur or gallop Abdomen: Exam shows: Soft, nontender, nondistended Musculoskeletal: No clubbing, no cyanosis, no lower extremity edema Dermatology: Jaundice Neurological: Exam shows: Alert and oriented x4, normal speech Available prior records, labs, EKG, rhythm strips reviewed and interpreted Labs/Diagnostic Data Labs Test 04/02/24 11:58 04/02/24 09:27 04/01/24 11:00 03/31/24 22:45 Range/Units POC Glucose 177 H 70-106 mg/dl White Blood Count 7.9 4.4-10.8 10^3/uL Red Blood Count 4.80 4.5-5.90 10^6/uL Hemoglobin 13.6 13.5-17.5 g/dL Hematocrit 40.6 L 41.0-53.0 % Mean Corpuscular Volume 84.7 80.0-100.0 fL Mean Corpuscular Hemoglobin 28.3 28.0-32.0 pg Mean Corpuscular Hemoglobin Concent 33.4 32.0-36.0 g/dL Red Cell Distribution Width 14.9 H 11.8-14.3 % Platelet Count 120 #L 140-450 10^3/uL Mean Platelet Volume 8.6 6.9-10.8 fL Neutrophils (%) (Auto) 77.6 37.0-80.0 % Lymphocytes (%) (Auto) 8.9 L 10.0-50.0 % Monocytes (%) (Auto) 10.9 0.0-12.0 % Eosinophils (%) (Auto) 1.6 0.0-7.0 % Basophils (%) (Auto) 1.0 0.0-2.0 % Neutrophils # (Auto) 6.1 1.6-8.6 10 ^3/uL Lymphocytes # (Auto) 0.7 0.4-5.4 10 ^3/uL Monocytes # (Auto) 0.9 0-1.3 10 ^3/uL Eosinophils # (Auto) 0.1 0-0.8 10 ^3/uL Basophils # (Auto) 0.1 0-0.2 10 ^3/uL Nucleated Red Blood Cells 0.1 % Sodium Level 133 L 136-145 mmol/L Potassium Level 3.1 L 3.5-5.1 mmol/L Chloride Level 94 L 98-107 mmol/L Carbon Dioxide Level 30 20-31 mmol/L Anion Gap 9 5-15 Blood Urea Nitrogen 9 9-23 mg/dL Creatinine 0.65 L 0.700-1.30 mg/dL Glomerular Filtration Rate Calc 102 >90 mL/min BUN/Creatinine Ratio 13.8 10.0-20.0 Serum Glucose 124 H 74-106 mg/dL Calcium Level 8.6 L 8.7-10.4 mg/dL Total Bilirubin 7.4 H 0.2-1.0 mg/dL Aspartate Amino Transferase (AST) 204 H 13-40 U/L Alanine Aminotransferase (ALT) 128 H 7-40 U/L Alkaline Phosphatase 528 H 46-116 U/L B-Type Natriuretic Peptide 56.04 0-100 pg/mL Total Protein 6.4 5.7-8.2 g/dL Albumin 3.3 3.2-4.8 g/dL Vancomycin Level Trough 15.8 H 5-10 ug/mL Stool Occult Blood Negative Negative Stool Occult Blood Sample #3 Negative Test 03/30/24 19:46 03/30/24 07:11 03/28/24 07:18 03/28/24 05:59 Range/Units Ammonia < 10 L 11-32 umol/L Tumor Marker Alpha Fetoprotein 141.0 H 0.0-8.4 ng/mL Troponin I High Sensitivity 60 *H </=54 ng/L Influenza Type A Antigen Negative Negative Influenza Type B Antigen Negative Negative SARS-CoV-2 Antigen (Rapid) Negative NEGATIVE Test 03/28/24 05:55 03/28/24 04:03 03/28/24 04:00 Range/Units Lactic Acid Level 4.8 *H 0.4-2.0 mmol/L Platelet Estimate Decreased Prothrombin Time 14.0 H 9.3-11.8 sec Prothrombin Time INR 1.36 H 0.9-1.15 Activated Partial Thromboplast Time 30.1 24.5-34.5 SEC Hemoglobin A1c 5.7 <5.7 % A1C Lipase 30 12-53 U/L Urine Color Dark-yellow Yellow Urine Clarity Clear Clear Urine pH 6.0 5.0-9.0 Urine Specific [place] 1.020 1.001-1.035 Urine Protein 1+ H Negative Urine Ketones Trace Negative Urine Blood 1+ H Negative /uL Urine Nitrite Negative Negative Urine Bilirubin 2+ Negative Urine Urobilinogen 6 Negative mg/dL Urine Leukocyte Esterase Negative Negative /uL Urine RBC 11 0 - 3 /hpf Urine Microscopic WBC 2 0-3 /HPF Urine Squamous Epithelial Cells Few <5 /hpf Urine Bacteria None seen None Seen /hpf Urine Glucose Normal Normal mg/dL Microbiology Date/Time Source Procedure Growth Status 2/19/25 12:53 Nose MRSA Screen - Final Complete 03/28/24 04:03 Blood Blood Culture - Final Escherichia coli Complete 03/28/24 04:00 Voided Urine Urine Culture - Final Proteus mirabilis Complete Assessment Tachycardia, Multifocal Atrial Tachycardia (MAT) vs atrial fibrillation Liver Cirrhosis Elevated LFTs Hepatic Encephalopathy Sepsis Hypokalemia Positive troponin CHF Cholelithiasis Plan/Recommendation * Follow up EKG. IV metoprolol 5 mg x 1. Continue metoprolol 50 mg po twice daily. * Follow up ECHO * Initial CXR showing cardiomegaly with pulmonary congestion. Continue diuresis * Monitor and replace electrolytes Keep K>4 and MG>2 * GI on board Case Discussed with Dr Knox. Heart rate in the 140s. Follow-up EKG shows sinus tachycardia with PACs, likely episodes of PAT. Continue metoprolol, continue telemetry monitoring. Monitoring replace electrolytes. Follow up echo. Critical care, time spent: 40 minutes This medical document was created using an electronic medical record system with voice recognition software and computerized dictation system. Although this document has been carefully reviewed, there might still be some phonetic and typographical errors. Occasional wrong-word or ``sound-alike substitutions may have occurred due to the inherent limitations of voice recognition software. These areas are purely typographical due to imperfections of the software programs and do not reflect any compromise in the patient's medical care. Please read the chart carefully and recognize, using context, where these substitutions have occurred. Thank you for allowing me to participate in the management of this patient. The treatment plan was discussed with and agreed upon by patient/family including requesting consultants and ordering of imaging/procedures. Plan discussed with: Patient NYHA Physical activity limitations: Class4(Severe)discomfort Date of Service: Apr 02, 2024 Billing Provider: CARMENZA NELSON Cardiology Common Codes: [id number] INP/OBS CARE (High), [id number] CARE 30-74 MIN CARMENZA NELSON Apr 02, 2024 12:50
[2024-04-02] MEDS: POTASSIUM CHL 20 Meq TABLET PO ONE (13:30)
--- NOTE | 2024-04-02 13:33 | DVHPN2 ---
Reviewed: Care Plan, H&P, Labs, Medications, Previous Orders, Radiology Changes from previous H/P or p: No Changes General: Per HPI Eyes: No Pain, No Vision change, No Conjunctivae inflammation, No Eyelid inflammation, No Other, No Redness ENT: No Ear pain, No Ear discharge, No Nose pain, No Nose discharge, No Nose congestion, No Mouth pain, No Mouth swelling, No Throat pain, No Throat swelling, No Other Cardiovascular: No Chest Pain, No Palpitations, No Orthopnea, No Paroxysmal Noc. Dyspnea, No Edema, No Lt Headedness, No Other Respiratory: No Cough, No Dry, No Shortness of breath, No SOB with excertion, No Wheezing, No Hemoptysis, No Pleuritic Pain, No Sputum, No Other Gastrointestinal: No Nausea, No Vomiting; Abdominal Pain; No Diarrhea, No Constipation, No Melena, No Hematochezia, No Other Genitourinary: No Dysuria, No Frequency, No Incontinence, No Hematuria, No Retention, No Other Musculoskeletal: No other, No neck pain, No shoulder pain, No arm pain, No back pain, No hand pain, No leg pain, No foot pain Skin: No Rash, No Lesions, No Jaundice, No Bruising, No Other Objective Vitals Vital Signs Date Time Temp Pulse Resp B/P (MAP) Pulse Ox O2 Delivery O2 Flow Rate FiO2 04/02/24 12:12 142 151/93 04/02/24 09:17 98.4 20 100 98.4 04/01/24 20:00 Nasal Cannula* 2 28 Intake/Output Intake and Output 04/02/24 07:00 Intake Total 2950 ml Output Total 950 ml Balance 2000 ml Intake Oral 1400 ml IV Total 1550 ml Output Urine Total 950 ml # Bowel Movements 2 General Appearance: Alert, Cooperative, No acute distress HEENT: Atraumatic, PERRLA, EOMI, Mucous membr. moist/pink Neck: Supple Lungs: Clear to auscultation, Normal air movement Cardiovascular: Regular rate, Normal S1, Normal S2, No murmurs, Gallops, Rubs Abdomen: Normal bowel sounds, Soft Neuro: Cranial nerves 3-12 NL Psych/Mental Status: Mental status NL Medications Current Medications Medications Dose Ordered Sig/Destiney Route Start Time Stop Time Status Last Admin Dose Admin Sodium Chloride 10 ml Q8HR IV 03/28/24 14:00 04/02/24 06:00 10 ML Ondansetron HCl 4 mg Q4HP PRN IV 03/28/24 08:15 Docusate Sodium 100 mg BIDPRN PRN PO 03/28/24 08:15 04/02/24 09:46 100 MG Nitroglycerin 0.4 mg Q5MINP PRN SL 03/28/24 08:15 Morphine Sulfate 2 mg Q30M PRN IV 03/28/24 08:15 Diagnostic Test (Pha) 1 strip Q6HR 03/28/24 12:00 04/02/24 12:14 1 STRIP Insulin Human Regular Q6HR SC 03/28/24 12:00 04/02/24 12:21 3 UNITS Dextrose 50 ml UD PRN IV 03/28/24 08:15 Trazodone HCl 100 mg HSPRN PRN PO 03/28/24 08:15 04/01/24 22:01 100 MG Patient Own Medication 1 tab DAILY PO 03/28/24 10:00 UNV Patient Own Medication 10 mg HS PO 03/28/24 22:00 UNV Patient Own Medication 1 tab DAILY PO 03/28/24 10:00 UNV Patient Own Medication 1 puff BID IN 03/28/24 10:00 03/29/24 12:34 1 PUFF Patient Own Medication 15 ml BID PO 03/28/24 10:00 UNV Patient Own Medication 1 tab DAILY PO 03/28/24 10:00 UNV Patient Own Medication 1 tab TID PO 03/28/24 14:00 03/30/24 13:10 1 TAB Furosemide 20 mg BIDD IV 03/28/24 18:00 04/02/24 06:32 20 MG Duloxetine HCl 60 mg DAILY PO 03/28/24 10:00 04/02/24 09:47 60 MG Atorvastatin Calcium 10 mg HS PO 03/28/24 22:00 04/01/24 21:57 10 MG Lactulose 15 ml BID PO 03/28/24 10:00 04/02/24 09:45 15 ML Ceftriaxone Sodium 50 ml @ 100 mls/hr DAILY@09 IV 03/29/24 09:00 04/02/24 09:51 100 MLS/HR Vancomycin HCl 0 ml @ 0 mls/hr UD IV 03/28/24 10:00 Vancomycin HCl 250 ml @ 250 mls/hr Q12H IV 03/29/24 00:00 04/02/24 12:10 250 MLS/HR Oxycodone/ Acetaminophen 2 tab Q6HP PRN PO 03/30/24 14:30 04/02/24 06:40 2 TAB Pantoprazole Sodium 40 mg DAILY@0600 PO 03/31/24 06:00 04/02/24 06:32 40 MG Metoprolol Tartrate 50 mg BID PO 04/02/24 22:00 Laboratory Results Laboratory Tests 04/02/24 09:27 Chemistry Test 04/02/24 06:45 04/02/24 09:27 04/02/24 11:22 Calcium Level 9.4 mg/dL (8.7-10.4) 8.6 mg/dL (8.7-10.4) L Albumin 3.3 g/dL (3.2-4.8) Total Protein 6.4 g/dL (5.7-8.2) Magnesium Level Pending Cardiac Markers Test 04/02/24 09:27 B-Type Natriuretic Peptide 56.04 pg/mL (0-100) LFT Test 04/02/24 09:27 Alanine Aminotransferase (ALT) 128 U/L (7-40) H Alkaline Phosphatase 528 U/L (46-116) H Aspartate Amino Transferase (AST) 204 U/L (13-40) H Total Bilirubin 7.4 mg/dL (0.2-1.0) H HgA1c, TSH Test 04/02/24 11:23 Thyroid Stimulating Hormone (TSH) 0.42 uIU/mL (0.55-4.78) L Urinalysis Test 03/28/24 04:00 Urine Color Dark-yellow (Yellow) Urine Clarity Clear (Clear) Urine pH 6.0 (5.0-9.0) Urine Specific [place] 1.020 (1.001-1.035) Urine Protein 1+ (Negative) H Urine Ketones Trace (Negative) Urine Blood 1+ /uL (Negative) H Urine Nitrite Negative (Negative) Urine Bilirubin 2+ (Negative) Urine Urobilinogen 6 mg/dL (Negative) Urine Leukocyte Esterase Negative /uL (Negative) Urine RBC 11 /hpf (0 - 3) Urine Microscopic WBC 2 /HPF (0-3) Urine Squamous Epithelial Cells Few /hpf (<5) Urine Bacteria None seen /hpf (None Seen) Urine Glucose Normal mg/dL (Normal) Microbiology Microbiology Date/Time Source Procedure Growth Status 03/29/24 12:53 Nose MRSA Screen - Final Complete 03/28/24 04:03 Blood Blood Culture - Final Escherichia coli Complete 03/28/24 04:00 Voided Urine Urine Culture - Final Proteus mirabilis Complete Labs and/or images reviewed: Labs reviewed by me, Image(s) reviewed by me Assessment/Plan Assessment/Plan Hepatic encephalopathy, Liver cancer with possible metastasis, Possible Cholelithiasis, Right renal mass, Lactic acidosis, Possible sepsis, Enlarged lymph nodes, hypertension, Diabetes, Hyperlipidemia acute colitis 03/30/2024 Continuing current management. Continuing with IV fluid. I will restart food with cardiac diet and carb controlled diabetic diet. We will follow up with blood culture and urine culture Continuing Accu-Chek and sliding scale insulin MRCP GI consult full work up pending 03/31/2024 MRCP pending GI following pain control started on lactulose 04/01/2024 continue with empirical IV Abx for colitis tx 04/02/2024 continue with iv abx advance diet pain control Plan discussed with: Patient Date of Service: Apr 02, 2024 Billing Provider: JANUARY JOHNS DO Common Visit Codes: [id number] INP/OBS CARE(HIGH) JANUARY JOHNS DO Apr 02, 2024 13:33
--- NOTE | 2024-04-02 16:38 | MEDREC ---
PENDING SALE TO [facility] Intervention Section I PENDING SALE TO [facility] Intervention: Deescalate AB based on CS (PLEASE CONSIDER DE-ESCALATION BASED ON CULTURE RESULTS) HARLEY DELUNA PHARMACIST Apr 02, 2024 16:38
[2024-04-02] MEDS: METOPROLOL TARTRATE 50 MG TAB PO SCH (21:51)
[2024-04-03] VITALS (8 sets, daily range): BP systolic 112–154; BP diastolic 57–90; PULSE 58–95; RESP 16–18; TEMP 97.8–98.2; O2SAT 93–99
[2024-04-03 07:50] LABS: Anion Gap 8 (5-15); Carbon Dioxide 31 mmol/L (20-31); Potassium 4.4 mmol/L (3.5-5.1)
[2024-04-03 07:56] LABS: BUN/Creatinine Ratio 18.7 (10.0-20.0); Blood Urea Nitrogen 14 mg/dL (9-23); Glucose 99 mg/dL (74-106)
[2024-04-03 08:02] LABS: Calcium 8.6 mg/dL (8.7-10.4); Chloride 94 mmol/L (98-107); Sodium 133 mmol/L (136-145)
--- NOTE | 2024-04-03 08:23 | DVHSR ---
APPROVED REPORT EXAM: Two-dimensional and M-mode echocardiogram with Doppler and color Doppler. Blood Pressure: 145/101 mmHg INDICATION CHF Tachycardia RISK FACTORS Height: 5'7", Weight: 198 DIMENSIONS LVDd4.7 (3.8-5.7cm)LA (2D)3.9 (1.9-4.0cm)Aortic Root3.8 (2.0-3.7cm) LVDs4.1 (2.5-4.0cm)LA (MM) (1.9-4.0cm)Aortic Cusp Exc2.0 (1.5-2.0cm) EF (%) 25.0 (55-70%)Rt. Atrium4.4 (1.9-4.0cm)Asc. Aorta cm IVSd1.0 (0.7-1.1cm)RV (D)4.4 (1.8-2.4cm) PWd1.1 (0.7-1.1cm) Mitral Valve MitralMitral Stenosis E wave1.34m/sMV Mean GR.mmHg E/A ratio0.02D MVAcm2 Aortic Valve Aortic ValveAortic Stenosis V10.61m/Genaro Mean GR.3mmHg V21.30m/Genaro Peak GR.7mmHg LVOT Diameter2.1 (1.8-2.4cm)Doppler AVA1.62cm2 Tricuspid Valve TR Velocity2.73m/s [id number] Other Information Technically limited study due to body habitus. Conclusion lvef 30% by visual estimate abnormal septal motion restrictive LV filling pattern RV enlarged normal atria normal pericardium no severe valve abnormalities noted mild mitral regurg
[2024-04-03 12:35] LABS: Hepatitis A Total Antibody Positive (Negative); Hepatitis B Core Total AB Negative (Negative); Hepatitis B Surface Antibody Negative (Negative); Hepatitis B Surface Antigen Negative (Negative)
[2024-04-03 12:39] LABS: Hepatitis C Antibody Reactive (Negative)
[2024-04-03] MEDS: GADOTERATE MEG 10 MMOL/20ml INJ (0.5MMOL/ml) IV ONE (13:54)
--- NOTE | 2024-04-03 16:04 | DVHPN2 ---
Subjective Patient continues to complain of abdominal pain. Reviewed: Care Plan, H&P, Labs, Medications, Previous Orders, Radiology Changes from previous H/P or p: No Changes General: Per HPI Eyes: No Pain, No Vision change, No Conjunctivae inflammation, No Eyelid inflammation, No Other, No Redness ENT: No Ear pain, No Ear discharge, No Nose pain, No Nose discharge, No Nose congestion, No Mouth pain, No Mouth swelling, No Throat pain, No Throat swelling, No Other Cardiovascular: No Chest Pain, No Palpitations, No Orthopnea, No Paroxysmal Noc. Dyspnea, No Edema, No Lt Headedness, No Other Respiratory: No Cough, No Dry, No Shortness of breath, No SOB with excertion, No Wheezing, No Hemoptysis, No Pleuritic Pain, No Sputum, No Other Gastrointestinal: No Nausea, No Vomiting; Abdominal Pain; No Diarrhea, No Constipation, No Melena, No Hematochezia, No Other Genitourinary: No Dysuria, No Frequency, No Incontinence, No Hematuria, No Retention, No Other Musculoskeletal: No other, No neck pain, No shoulder pain, No arm pain, No back pain, No hand pain, No leg pain, No foot pain Skin: No Rash, No Lesions, No Jaundice, No Bruising, No Other Objective Vitals Vital Signs Date Time Temp Pulse Resp B/P (MAP) Pulse Ox O2 Delivery O2 Flow Rate FiO2 04/03/24 12:30 98.2 58 18 138/83 (101) 95 98.2 04/03/24 08:00 Nasal Cannula* 3 32 Intake/Output Intake and Output 04/03/24 07:00 Intake Total 1440 ml Output Total 1750 ml Balance -310 ml Intake Oral 640 ml IV Total 800 ml Output Urine Total 1750 ml General Appearance: Alert, Cooperative, No acute distress HEENT: Atraumatic, PERRLA, EOMI, Mucous membr. moist/pink Neck: Supple Lungs: Clear to auscultation, Normal air movement Cardiovascular: Regular rate, Normal S1, Normal S2, No murmurs, Gallops, Rubs Abdomen: Normal bowel sounds, Soft Neuro: Cranial nerves 3-12 NL Skin: Dry, Intact Psych/Mental Status: Mental status NL Medications Current Medications Medications Dose Ordered Sig/Destiney Route Start Time Stop Time Status Last Admin Dose Admin Sodium Chloride 10 ml Q8HR IV 03/28/24 14:00 04/03/24 14:01 10 ML Ondansetron HCl 4 mg Q4HP PRN IV 03/28/24 08:15 Docusate Sodium 100 mg BIDPRN PRN PO 03/28/24 08:15 04/02/24 09:46 100 MG Nitroglycerin 0.4 mg Q5MINP PRN SL 03/28/24 08:15 Morphine Sulfate 2 mg Q30M PRN IV 03/28/24 08:15 Diagnostic Test (Pha) 1 strip Q6HR 03/28/24 12:00 04/03/24 11:46 1 STRIP Insulin Human Regular Q6HR SC 03/28/24 12:00 04/03/24 11:44 3 UNITS Dextrose 50 ml UD PRN IV 03/28/24 08:15 Trazodone HCl 100 mg HSPRN PRN PO 03/28/24 08:15 04/01/24 22:01 100 MG Patient Own Medication 1 tab DAILY PO 03/28/24 10:00 UNV Patient Own Medication 10 mg HS PO 03/28/24 22:00 UNV Patient Own Medication 1 tab DAILY PO 03/28/24 10:00 UNV Patient Own Medication 1 puff BID IN 03/28/24 10:00 03/29/24 12:34 1 PUFF Patient Own Medication 15 ml BID PO 03/28/24 10:00 UNV Patient Own Medication 1 tab DAILY PO 03/28/24 10:00 UNV Patient Own Medication 1 tab TID PO 03/28/24 14:00 03/30/24 13:10 1 TAB Furosemide 20 mg BIDD IV 03/28/24 18:00 04/03/24 05:19 20 MG Duloxetine HCl 60 mg DAILY PO 03/28/24 10:00 04/03/24 09:02 60 MG Atorvastatin Calcium 10 mg HS PO 03/28/24 22:00 04/02/24 21:50 10 MG Lactulose 15 ml BID PO 03/28/24 10:00 04/03/24 09:03 15 ML Ceftriaxone Sodium 50 ml @ 100 mls/hr DAILY@09 IV 03/29/24 09:00 04/03/24 09:02 100 MLS/HR Vancomycin HCl 0 ml @ 0 mls/hr UD IV 03/28/24 10:00 Vancomycin HCl 250 ml @ 250 mls/hr Q12H IV 03/29/24 00:00 04/03/24 13:39 250 MLS/HR Oxycodone/ Acetaminophen 2 tab Q6HP PRN PO 03/30/24 14:30 04/03/24 05:27 2 TAB Pantoprazole Sodium 40 mg DAILY@0600 PO 03/31/24 06:00 04/03/24 05:14 40 MG Metoprolol Tartrate 50 mg BID PO 04/02/24 22:00 04/03/24 09:03 50 MG Laboratory Results Laboratory Tests 04/02/24 09:27 04/03/24 06:24 Chemistry Test 04/03/24 06:24 Calcium Level 8.6 mg/dL (8.7-10.4) L Urinalysis Test 03/28/24 04:00 Urine Color Dark-yellow (Yellow) Urine Clarity Clear (Clear) Urine pH 6.0 (5.0-9.0) Urine Specific [place] 1.020 (1.001-1.035) Urine Protein 1+ (Negative) H Urine Ketones Trace (Negative) Urine Blood 1+ /uL (Negative) H Urine Nitrite Negative (Negative) Urine Bilirubin 2+ (Negative) Urine Urobilinogen 6 mg/dL (Negative) Urine Leukocyte Esterase Negative /uL (Negative) Urine RBC 11 /hpf (0 - 3) Urine Microscopic WBC 2 /HPF (0-3) Urine Squamous Epithelial Cells Few /hpf (<5) Urine Bacteria None seen /hpf (None Seen) Urine Glucose Normal mg/dL (Normal) Microbiology Microbiology Date/Time Source Procedure Growth Status 03/29/24 12:53 Nose MRSA Screen - Final Complete 03/28/24 04:03 Blood Blood Culture - Final Escherichia coli Complete 03/28/24 04:00 Voided Urine Urine Culture - Final Proteus mirabilis Complete Labs and/or images reviewed: Labs reviewed by me, Image(s) reviewed by me Assessment/Plan Assessment/Plan Impression: -choledocholithiasis -cirrhosis of the liver -portal hypertension -obesity -hepatic encephalopathy -colitis -hepatitis-C -anemia of chronic disease -thrombocytopenia Plan: -change antibiotic therapy to Zosyn for noted colitis on MRCP -social service consult to transfer to higher level care -stop vancomycin -repeat blood culture -continue lactulose -pain management -repeat labs in a.m. Total time spent with patient discussing and formulating plan of care: 35 minutes. This medical document was created using an electronic medical record system with [employer] dictation system. Although this document has been carefully reviewed, there may still be some phonetic and typographical errors. These areas are purely typographical due to imperfections of the software programs, and do not reflect any compromise in the patient's medical care. Plan discussed with: Patient, Other (RN) Date of Service: Apr 03, 2024 Billing Provider: CITLALI NELSON NP Common Visit Codes: [id number] INP/OBS CARE(HIGH) CITLALI NELSON NP Apr 03, 2024 16:04
[2024-04-03] MEDS: PIPERACILLIN-TAZOB 3.375GM 100 ML IV SCH (22:20)
[2024-04-04] VITALS (9 sets, daily range): BP systolic 117–164; BP diastolic 77–89; PULSE 62–79; RESP 16–19; TEMP 97.3–98.2; O2SAT 93–97
[2024-04-04 07:37] LABS: Basophils # (auto) 0.1 10 ^3/uL (0-0.2); Basophils % (auto) 0.6 % (0.0-2.0); Eosinophils # (auto) 0.2 10 ^3/uL (0-0.8); Eosinophils % (auto) 1.9 % (0.0-7.0); Hematocrit 39.6 % (41.0-53.0); Hemoglobin 13.3 g/dL (13.5-17.5); Lymphocytes # (auto) 0.8 10 ^3/uL (0.4-5.4); Lymphocytes % (auto) 8.9 % (10.0-50.0); Mean Corpuscular Hemoglobin 28.5 pg (28.0-32.0); Mean Corpuscular Hgb Conc. 33.6 g/dL (32.0-36.0); Mean Corpuscular Volume 84.9 fL (80.0-100.0); Monocytes # (auto) 0.5 10 ^3/uL (0-1.3); Monocytes % (auto) 5.8 % (0.0-12.0); Neutrophils # (auto) 7.5 10 ^3/uL (1.6-8.6); Neutrophils % (auto) 82.8 % (37.0-80.0); Nucleated Red Blood Cells % 0.1 %; Platelet Count (auto) 193 10^3/uL (140-450); Red Blood Cells 4.66 10^6/uL (4.5-5.90); Red Cell Distribution Width 15.4 % (11.8-14.3)
[2024-04-04 07:53] LABS: Albumin 3.2 g/dL (3.2-4.8); Anion Gap 10 (5-15); BUN/Creatinine Ratio 20.9 (10.0-20.0); Blood Urea Nitrogen 14 mg/dL (9-23); Carbon Dioxide 30 mmol/L (20-31)
[2024-04-04 07:54] LABS: Total Protein 6.6 g/dL (5.7-8.2)
[2024-04-04 07:56] LABS: Alanine Aminotransferase 136 U/L (7-40); Alkaline Phosphatase 740 U/L (46-116); Aspartate Aminotransferase 197 U/L (13-40); Bilirubin, Total 5.4 mg/dL (0.2-1.0); Chloride 92 mmol/L (98-107); Glucose 123 mg/dL (74-106); Potassium 3.2 mmol/L (3.5-5.1); Sodium 132 mmol/L (136-145)
--- NOTE | 2024-04-04 10:52 | CONS ---
Pharmacy Clinical Information: CQM HF. Patient is currently being treated for tachycardia with metoprolol t artrate, once BP and HR are stable please consider switching to metoprolol succinate. Patient also has liver cancer and GDMT should be initiated with caution at the discretion of the wraparound facilitator. If ascites present, per lexidrug avoid use of ACEI and use ARB with caution. ARNI should be used with caution in patients with ascites due to cirrhosis and Child-Murphy class B and is not r ecommended if Child-Murphy class C. KAI MARTINEZ PHARMACIST Apr 04, 2024 10:52
--- NOTE | 2024-04-04 15:51 | DVHPN2 ---
Subjective Patient continues to complain of abdominal pain. Reviewed: Care Plan, H&P, Labs, Medications, Previous Orders, Radiology Changes from previous H/P or p: No Changes General: Per HPI Eyes: No Pain, No Vision change, No Conjunctivae inflammation, No Eyelid inflammation, No Other, No Redness ENT: No Ear pain, No Ear discharge, No Nose pain, No Nose discharge, No Nose congestion, No Mouth pain, No Mouth swelling, No Throat pain, No Throat swelling, No Other Cardiovascular: No Chest Pain, No Palpitations, No Orthopnea, No Paroxysmal Noc. Dyspnea, No Edema, No Lt Headedness, No Other Respiratory: No Cough, No Dry, No Shortness of breath, No SOB with excertion, No Wheezing, No Hemoptysis, No Pleuritic Pain, No Sputum, No Other Gastrointestinal: No Nausea, No Vomiting; Abdominal Pain; No Diarrhea, No Constipation, No Melena, No Hematochezia, No Other Genitourinary: No Dysuria, No Frequency, No Incontinence, No Hematuria, No Retention, No Other Musculoskeletal: No other, No neck pain, No shoulder pain, No arm pain, No back pain, No hand pain, No leg pain, No foot pain Skin: No Rash, No Lesions, No Jaundice, No Bruising, No Other Objective Vitals Vital Signs Date Time Temp Pulse Resp B/P (MAP) Pulse Ox O2 Delivery O2 Flow Rate FiO2 04/04/24 13:00 97.3 64 17 154/82 (106) 97 97.3 04/04/24 07:59 Nasal Cannula* 2 28 Intake/Output Intake and Output 04/04/24 07:00 Intake Total 1100 ml Output Total 475 ml Balance 625 ml Intake Oral 800 ml IV Total 300 ml Output Urine Total 475 ml # Bowel Movements 4 General Appearance: Alert, Cooperative, No acute distress HEENT: Atraumatic, PERRLA, EOMI, Mucous membr. moist/pink Neck: Supple Lungs: Clear to auscultation, Normal air movement Cardiovascular: Regular rate, Normal S1, Normal S2, No murmurs, Gallops, Rubs Abdomen: Normal bowel sounds, Soft Neuro: Cranial nerves 3-12 NL Skin: Dry, Intact Psych/Mental Status: Mental status NL Medications Current Medications Medications Dose Ordered Sig/Destiney Route Start Time Stop Time Status Last Admin Dose Admin Sodium Chloride 10 ml Q8HR IV 03/28/24 14:00 04/04/24 13:42 10 ML Ondansetron HCl 4 mg Q4HP PRN IV 03/28/24 08:15 Docusate Sodium 100 mg BIDPRN PRN PO 03/28/24 08:15 04/02/24 09:46 100 MG Nitroglycerin 0.4 mg Q5MINP PRN SL 03/28/24 08:15 Morphine Sulfate 2 mg Q30M PRN IV 03/28/24 08:15 Diagnostic Test (Pha) 1 strip Q6HR 03/28/24 12:00 04/04/24 11:22 1 STRIP Insulin Human Regular Q6HR SC 03/28/24 12:00 04/04/24 11:22 2 UNITS Dextrose 50 ml UD PRN IV 03/28/24 08:15 Trazodone HCl 100 mg HSPRN PRN PO 03/28/24 08:15 04/01/24 22:01 100 MG Patient Own Medication 1 tab DAILY PO 03/28/24 10:00 UNV Patient Own Medication 10 mg HS PO 03/28/24 22:00 UNV Patient Own Medication 1 tab DAILY PO 03/28/24 10:00 UNV Patient Own Medication 1 puff BID IN 03/28/24 10:00 04/04/24 09:35 1 PUFF Patient Own Medication 15 ml BID PO 03/28/24 10:00 UNV Patient Own Medication 1 tab DAILY PO 03/28/24 10:00 UNV Patient Own Medication 1 tab TID PO 03/28/24 14:00 03/30/24 13:10 1 TAB Furosemide 20 mg BIDD IV 03/28/24 18:00 04/04/24 05:27 20 MG Duloxetine HCl 60 mg DAILY PO 03/28/24 10:00 04/04/24 09:34 60 MG Atorvastatin Calcium 10 mg HS PO 03/28/24 22:00 04/03/24 22:13 10 MG Lactulose 15 ml BID PO 03/28/24 10:00 04/04/24 09:35 15 ML Oxycodone/ Acetaminophen 2 tab Q6HP PRN PO 03/30/24 14:30 04/04/24 11:22 2 TAB Pantoprazole Sodium 40 mg DAILY@0600 PO 03/31/24 06:00 04/04/24 05:25 40 MG Metoprolol Tartrate 50 mg BID PO 04/02/24 22:00 04/04/24 09:34 50 MG Piperacillin Sod/ Tazobactam Sod 100 ml @ 25 mls/hr Q8HR IV 04/03/24 22:00 04/04/24 13:43 25 MLS/HR Laboratory Results Laboratory Tests 04/04/24 06:00 Chemistry Test 04/04/24 06:00 Albumin 3.2 g/dL (3.2-4.8) Calcium Level 9.0 mg/dL (8.7-10.4) Total Protein 6.6 g/dL (5.7-8.2) LFT Test 04/04/24 06:00 Alanine Aminotransferase (ALT) 136 U/L (7-40) H Alkaline Phosphatase 740 U/L (46-116) H Aspartate Amino Transferase (AST) 197 U/L (13-40) H Total Bilirubin 5.4 mg/dL (0.2-1.0) H Urinalysis Test 03/28/24 04:00 Urine Color Dark-yellow (Yellow) Urine Clarity Clear (Clear) Urine pH 6.0 (5.0-9.0) Urine Specific [place] 1.020 (1.001-1.035) Urine Protein 1+ (Negative) H Urine Ketones Trace (Negative) Urine Blood 1+ /uL (Negative) H Urine Nitrite Negative (Negative) Urine Bilirubin 2+ (Negative) Urine Urobilinogen 6 mg/dL (Negative) Urine Leukocyte Esterase Negative /uL (Negative) Urine RBC 11 /hpf (0 - 3) Urine Microscopic WBC 2 /HPF (0-3) Urine Squamous Epithelial Cells Few /hpf (<5) Urine Bacteria None seen /hpf (None Seen) Urine Glucose Normal mg/dL (Normal) Microbiology Microbiology Date/Time Source Procedure Growth Status 03/29/24 12:53 Nose MRSA Screen - Final Complete 03/28/24 04:03 Blood Blood Culture - Final Escherichia coli Complete 03/28/24 04:00 Voided Urine Urine Culture - Final Proteus mirabilis Complete Labs and/or images reviewed: Labs reviewed by me, Image(s) reviewed by me Assessment/Plan Assessment/Plan Impression: -choledocholithiasis -cirrhosis of the liver -portal hypertension -obesity -hepatic encephalopathy -colitis -hepatitis-C -anemia of chronic disease -thrombocytopenia Plan: -events: Case reviewed by multiple GI doctors at tertiary care facilities including Dr. Mojica and Dr. Montes. Wound anesthesiology resident is on do ERCP in the other feels the patient was high-risk given his liver cancer. Long discussion was made with the patient's daughter, Pina, who states that the patient has not initiated services with oncology treatment. Repeat blood cultures pending. We will reconsult Cardiology to see if patient needs to be evaluated for endocarditis. Potassium replacement. Continue efforts to transfer to higher level of care at this time. -social service consult to transfer to higher level care -continue Zosyn -repeat blood culture -continue lactulose -pain management -repeat labs in a.m. Total time spent with patient discussing and formulating plan of care: 35 minutes. Total time spent with patient and family regarding advance care plannin minutes. This medical document was created using an electronic medical record system with [employer] dictation system. Although this document has been carefully reviewed, there may still be some phonetic and typographical errors. These areas are purely typographical due to imperfections of the software programs, and do not reflect any compromise in the patient's medical care. Plan discussed with: Patient, Other (RN) My Orders Orders - CITLALI NELSON NP Procedure Category Date Status Time Blood Culture YORDAN 04/03/24 In Process 16:00 Piperacillin-Tazob PHA 04/03/24 In Process 3.375gm (Zosyn 3.375g 22:00 Potassium Effervesent PHA 04/05/24 Verified Tab (Klor-Con/Ef) 10:00 Complete Blood Count LAB 04/05/24 Verified 04:00 Comprehensive LAB 04/05/24 Verified Metabolic Panel 04:00 * Cardiology Consult CONS 04/04/24 Verified 15:24 Date of Service: Apr 04, 2024 Billing Provider: CITLALI NELSON NP Common Visit Codes: [id number] INP/OBS CARE(HIGH) Secondary Visit Codes: [id number] CARE PLAN 30 MINUTES CITLALI NELSON NP Apr 04, 2024 15:51
--- NOTE | 2024-04-04 16:50 | DVHPN2 ---
Progress Note Date Seen: Apr 04, 2024 Resident Creating Document: MOLLY TRAN RESIDENT Medical Necessity Reason Pt with a Central, PICC or Fol: Yes Subjective Review of Systems No new complaints. Patient continued to have mild abdominal discomfort. Tolerating diet. No nausea vomiting or diarrhea. Objective vital signs Vital Sign Date Time Temp Pulse Resp B/P (MAP) Pulse Ox O2 Delivery O2 Flow Rate FiO2 04/04/24 16:35 97.8 62 16 164/89 (114) 93 97.8 04/04/24 07:59 Nasal Cannula* 2 28 Total Intake and Output 04/03/24 04/03/24 04/04/24 15:00 23:00 07:00 Intake Total 300 ml 800 ml Output Total 125 ml 350 ml Balance 300 ml -125 ml 450 ml medications Current Medications Medications Dose Ordered Sig/Destiney Route Start Time Stop Time Status Last Admin Dose Admin Sodium Chloride 10 ml Q8HR IV 03/28/24 14:00 04/04/24 13:42 10 ML Ondansetron HCl 4 mg Q4HP PRN IV 03/28/24 08:15 Docusate Sodium 100 mg BIDPRN PRN PO 03/28/24 08:15 04/02/24 09:46 100 MG Nitroglycerin 0.4 mg Q5MINP PRN SL 03/28/24 08:15 Morphine Sulfate 2 mg Q30M PRN IV 03/28/24 08:15 Diagnostic Test (Pha) 1 strip Q6HR 03/28/24 12:00 04/04/24 11:22 1 STRIP Insulin Human Regular Q6HR SC 03/28/24 12:00 04/04/24 11:22 2 UNITS Dextrose 50 ml UD PRN IV 03/28/24 08:15 Trazodone HCl 100 mg HSPRN PRN PO 03/28/24 08:15 04/01/24 22:01 100 MG Patient Own Medication 1 tab DAILY PO 03/28/24 10:00 UNV Patient Own Medication 10 mg HS PO 03/28/24 22:00 UNV Patient Own Medication 1 tab DAILY PO 03/28/24 10:00 UNV Patient Own Medication 1 puff BID IN 03/28/24 10:00 04/04/24 09:35 1 PUFF Patient Own Medication 15 ml BID PO 03/28/24 10:00 UNV Patient Own Medication 1 tab DAILY PO 03/28/24 10:00 UNV Patient Own Medication 1 tab TID PO 03/28/24 14:00 03/30/24 13:10 1 TAB Furosemide 20 mg BIDD IV 03/28/24 18:00 04/04/24 05:27 20 MG Duloxetine HCl 60 mg DAILY PO 03/28/24 10:00 04/04/24 09:34 60 MG Atorvastatin Calcium 10 mg HS PO 03/28/24 22:00 04/03/24 22:13 10 MG Lactulose 15 ml BID PO 03/28/24 10:00 04/04/24 09:35 15 ML Oxycodone/ Acetaminophen 2 tab Q6HP PRN PO 03/30/24 14:30 04/04/24 11:22 2 TAB Pantoprazole Sodium 40 mg DAILY@0600 PO 03/31/24 06:00 04/04/24 05:25 40 MG Metoprolol Tartrate 50 mg BID PO 04/02/24 22:00 04/04/24 09:34 50 MG Piperacillin Sod/ Tazobactam Sod 100 ml @ 25 mls/hr Q8HR IV 04/03/24 22:00 04/04/24 13:43 25 MLS/HR Potassium Bicarbonate 25 meq DAILY PO 04/05/24 10:00 UNV Examination General Appearance: Cooperative. Well developed. Well nourished. NAD Head Exam: Normal inspection Neck Exam: Normal inspection. Non-tender. Normal alignment Pulmonary/Respiratory: Chest non-tender. Clear bilateral breath sounds Cardiovascular/Chest: Regular rate and rhythm. No murmurs. No JVD. Peripheral Pulses: 2+ Radial (R). 2+ Radial (L). 2+ Pedal (R). 2+ Pedal (L) Abdominal Exam: Normal bowel sounds. Soft. Nontender. No hepatospenomegaly. No masses Ankle Exam: Negative ankle edema Lower extremities: Negative lower extremity edema Neuro/Mental Status: A&O x4. Coherent Thoughts/Psych: Normal thought pattern. Appropriate mood and affect. Good judgement and insight Appearance: In no acute distress Skin Exam: Normal inspection. Normal color. Warm. Dry laboratory and microbiology Laboratory Tests 04/04/24 06:00 Test 04/04/24 06:00 Range/Units Serum Glucose 123 H 74-106 mg/dL Microbiology Date/Time Source Procedure Growth Status 03/29/24 12:53 Nose MRSA Screen - Final Complete 03/28/24 04:03 Blood Blood Culture - Final Escherichia coli Complete 03/28/24 04:00 Voided Urine Urine Culture - Final Proteus mirabilis Complete Problem List/Assessment/Plan Problem List/Assessment/Plan Choledocholithiasis Hepatic encephalopathy Liver cirrhosis Transaminitis Portal hypertension Hyperbilirubinemia Liver cancer Hepatitis-C infection Plan/recommendation Dr. Shaw -transfer higher level care for ERCP for symptomatic choledocholithiasis, continue to monitor liver function. -social service has been consulted for higher level of care -continue lactulose 15 ml p.o. b.i.d.. -[place] discriminating function for alcoholic hepatitis 15 point side, no need for steroids. -non trending liver function -hepatitis-C antibody positive: Follow up in outpatient setting for chronic management of liver disease. -Protonix 40 mg once daily -we will continue following this patient. Plan discussed with: Patient, Other (RN) Dietary Evaluation Review Comments: Monitor and encourage PO intake to meet 75% of his needs Expected Outcomes/Goals: gradual wt loss. improved nutrition status. MOLLY TRAN RESIDENT Apr 04, 2024 16:50
--- NOTE | 2024-04-04 17:21 | DVHPN2 ---
Consult Progress Note Subjective Other Systems: Patient in normal sinus rhythm on personnel monitor at the time of assessment. Objective vital signs Vital Sign Date Time Temp Pulse Resp B/P (MAP) Pulse Ox O2 Delivery O2 Flow Rate FiO2 04/04/24 16:35 97.8 62 16 164/89 (114) 93 97.8 04/04/24 07:59 Nasal Cannula* 2 28 Total Intake and Output 04/03/24 04/03/24 04/04/24 15:00 23:00 07:00 Intake Total 300 ml 800 ml Output Total 125 ml 350 ml Balance 300 ml -125 ml 450 ml medications Current Medications Medications Dose Ordered Sig/Destiney Route Start Time Stop Time Status Last Admin Dose Admin Sodium Chloride 10 ml Q8HR IV 03/28/24 14:00 04/04/24 13:42 10 ML Ondansetron HCl 4 mg Q4HP PRN IV 03/28/24 08:15 Docusate Sodium 100 mg BIDPRN PRN PO 03/28/24 08:15 04/02/24 09:46 100 MG Nitroglycerin 0.4 mg Q5MINP PRN SL 03/28/24 08:15 Morphine Sulfate 2 mg Q30M PRN IV 03/28/24 08:15 Diagnostic Test (Pha) 1 strip Q6HR 03/28/24 12:00 04/04/24 11:22 1 STRIP Insulin Human Regular Q6HR SC 03/28/24 12:00 04/04/24 11:22 2 UNITS Dextrose 50 ml UD PRN IV 03/28/24 08:15 Trazodone HCl 100 mg HSPRN PRN PO 03/28/24 08:15 04/01/24 22:01 100 MG Patient Own Medication 1 tab DAILY PO 03/28/24 10:00 UNV Patient Own Medication 10 mg HS PO 03/28/24 22:00 UNV Patient Own Medication 1 tab DAILY PO 03/28/24 10:00 UNV Patient Own Medication 1 puff BID IN 03/28/24 10:00 04/04/24 09:35 1 PUFF Patient Own Medication 15 ml BID PO 03/28/24 10:00 UNV Patient Own Medication 1 tab DAILY PO 03/28/24 10:00 UNV Patient Own Medication 1 tab TID PO 03/28/24 14:00 03/30/24 13:10 1 TAB Furosemide 20 mg BIDD IV 03/28/24 18:00 04/04/24 05:27 20 MG Duloxetine HCl 60 mg DAILY PO 03/28/24 10:00 04/04/24 09:34 60 MG Atorvastatin Calcium 10 mg HS PO 03/28/24 22:00 04/03/24 22:13 10 MG Lactulose 15 ml BID PO 03/28/24 10:00 04/04/24 09:35 15 ML Oxycodone/ Acetaminophen 2 tab Q6HP PRN PO 03/30/24 14:30 04/04/24 11:22 2 TAB Pantoprazole Sodium 40 mg DAILY@0600 PO 03/31/24 06:00 04/04/24 05:25 40 MG Metoprolol Tartrate 50 mg BID PO 04/02/24 22:00 04/04/24 09:34 50 MG Piperacillin Sod/ Tazobactam Sod 100 ml @ 25 mls/hr Q8HR IV 04/03/24 22:00 04/04/24 13:43 25 MLS/HR Potassium Bicarbonate 25 meq DAILY PO 04/05/24 10:00 UNV Examination: GENERAL:Abnormal (Generalized weakness), LUNGS:Normal, CVS:Normal, SKIN:Abnormal (Generalized Jaundice; with yellow sclera noted), NEURO:Normal laboratory and microbiology Laboratory Tests 04/04/24 06:00 Test 04/04/24 06:00 Range/Units Serum Glucose 123 H 74-106 mg/dL Problem List/Assessment/Plan Problem List/Assessment/Plan Bacteremia, rule out infective endocarditis Acute on chronic HFrEF, NYHA class II Hypertension Dyslipidemia Choledocholithiasis Liver cancer Liver cirrhosis Transaminitis Type 2 diabetes mellitus Acute on chronic anemia Thrombocytopenia Obesity We will continue following plan/recommendations (Dr. Carlos): Case discussed with . The patient was initially seen by on-call covering cardiology team on 04/02/24 for tachycardia. Cardiology has been re- consulted today for possible infective endocarditis. Transthoracic echocardiogram reveals EF 30%. Initiate guideline directed medical therapy for CHF as tolerated. Given the patients positive blood cultures, we will further assess for infective endocarditis. Plan for transesophageal echocardiogram discussed with the patient and his daughter in full detail. The patient is agreeable to undergo the procedure. We will schedule the patient at first availability on 04/05/24. Thank you for allowing us to care for this patient. Please call with any questions or concerns. This medical document was created using an electronic medical record system with voice recognition software and computerized dictation system. Although this document has been carefully reviewed, there might still be some phonetic and typographical errors. Occasional wrong-word or ``sound-alike substitutions may have occurred due to the inherent limitations of voice recognition software. These areas are purely typographical due to imperfections of the software programs and do not reflect any compromise in the patient's medical care. Please read the chart carefully and recognize, using context, where these substitutions have occurred. Plan discussed with: Patient Dietary Evaluation Review Comments: Monitor and encourage PO intake to meet 75% of his needs Expected Outcomes/Goals: gradual wt loss. improved nutrition status. Date of Service: Apr 04, 2024 Billing Provider: YESSI RICH Common Visit Codes: [id number] INP/OBS CARE(HIGH) YESSI RICH Apr 04, 2024 17:21
[2024-04-04] MEDS: MORPHINE SULFATE INJ 2 MG/ml SYRG IV PRN (17:38)
[2024-04-04 20:42] LABS: Free T3 2.74 pg/mL (2.3-4.2)
[2024-04-04 20:43] LABS: Free T4 (Free Thyroxine) 1.43 ng/dL (0.89-1.76)
[2024-04-05 01:00] VITALS: BP 144/83; PULSE 65; RESP 20; TEMP 98.3; O2SAT 96
[2024-04-05] MEDS ORDERED: POTASSIUM EFFERVESENT TAB 25 MEQ PO SCH (10:00)
[2024-04-05] MEDS ORDERED: LISINOPRIL 5 MG TAB PO SCH (10:00)
[2024-04-05] MEDS ORDERED: SPIRONOLACTONE 25 MG TAB PO SCH (10:00)
--- NOTE | 2024-04-10 16:26 | DVHDS2 ---
Discharge Summary Date of Admission Mar 28, 2024 at 08:05 Date of Discharge: Apr 04, 2024 Admitting Diagnosis Hepatic encephalopathy Labs/Diagnostic Data: Laboratory Results Test 04/05/24 00:04 04/04/24 19:52 04/04/24 06:00 04/03/24 11:44 POC Glucose 106 mg/dl (70-106) Free Thyroxine (T4) Calculated 1.43 ng/dL (0.89-1.76) Free Triiodothyronine (T3) pg/mL 2.74 pg/mL (2.3-4.2) White Blood Count 9.0 10^3/uL (4.4-10.8) Red Blood Count 4.66 10^6/uL (4.5-5.90) Hemoglobin 13.3 g/dL (13.5-17.5) Hematocrit 39.6 % (41.0-53.0) Mean Corpuscular Volume 84.9 fL (80.0-100.0) Mean Corpuscular Hemoglobin 28.5 pg (28.0-32.0) Mean Corpuscular Hemoglobin Concent 33.6 g/dL (32.0-36.0) Red Cell Distribution Width 15.4 % (11.8-14.3) Platelet Count 193 10^3/uL (140-450) Mean Platelet Volume 8.5 fL (6.9-10.8) Neutrophils (%) (Auto) 82.8 % (37.0-80.0) Lymphocytes (%) (Auto) 8.9 % (10.0-50.0) Monocytes (%) (Auto) 5.8 % (0.0-12.0) Eosinophils (%) (Auto) 1.9 % (0.0-7.0) Basophils (%) (Auto) 0.6 % (0.0-2.0) Neutrophils # (Auto) 7.5 10 ^3/uL (1.6-8.6) Lymphocytes # (Auto) 0.8 10 ^3/uL (0.4-5.4) Monocytes # (Auto) 0.5 10 ^3/uL (0-1.3) Eosinophils # (Auto) 0.2 10 ^3/uL (0-0.8) Basophils # (Auto) 0.1 10 ^3/uL (0-0.2) Nucleated Red Blood Cells 0.1 % Sodium Level 132 mmol/L (136-145) Potassium Level 3.2 mmol/L (3.5-5.1) Chloride Level 92 mmol/L (98-107) Carbon Dioxide Level 30 mmol/L (20-31) Anion Gap 10 (5-15) Blood Urea Nitrogen 14 mg/dL (9-23) Creatinine 0.67 mg/dL (0.700-1.30) Glomerular Filtration Rate Calc 101 mL/min (>90) BUN/Creatinine Ratio 20.9 (10.0-20.0) Serum Glucose 123 mg/dL (74-106) Calcium Level 9.0 mg/dL (8.7-10.4) Total Bilirubin 5.4 mg/dL (0.2-1.0) Aspartate Amino Transferase (AST) 197 U/L (13-40) Alanine Aminotransferase (ALT) 136 U/L (7-40) Alkaline Phosphatase 740 U/L (46-116) Total Protein 6.6 g/dL (5.7-8.2) Albumin 3.2 g/dL (3.2-4.8) Vancomycin Level Trough 17.6 ug/mL (5-10) Test 04/02/24 11:23 04/02/24 11:22 04/02/24 09:27 03/31/24 22:45 Thyroid Stimulating Hormone (TSH) 0.42 uIU/mL (0.55-4.78) Magnesium Level 1.7 mg/dL (1.6-2.6) B-Type Natriuretic Peptide 56.04 pg/mL (0-100) Stool Occult Blood Negative (Negative) Stool Occult Blood Sample #3 (Negative) Test 03/30/24 19:46 03/30/24 07:11 03/28/24 07:18 03/28/24 05:59 Hepatitis A Antibody Total Positive (Negative) Hepatitis B Surface Antigen Negative (Negative) Hepatitis B Surface Antibody Negative (Negative) Hepatitis B Core Total Antibody Negative (Negative) Hepatitis C Antibody Reactive (Negative) Ammonia < 10 umol/L (11-32) Tumor Marker Alpha Fetoprotein 141.0 ng/mL (0.0-8.4) Troponin I High Sensitivity 60 ng/L (</=54) Influenza Type A Antigen Negative (Negative) Influenza Type B Antigen Negative (Negative) SARS-CoV-2 Antigen (Rapid) Negative (NEGATIVE) Test 03/28/24 05:55 03/28/24 04:03 03/28/24 04:00 Lactic Acid Level 4.8 mmol/L (0.4-2.0) Platelet Estimate Decreased Prothrombin Time 14.0 sec (9.3-11.8) Prothrombin Time INR 1.36 (0.9-1.15) Activated Partial Thromboplast Time 30.1 SEC (24.5-34.5) Hemoglobin A1c 5.7 % A1C (<5.7) Lipase 30 U/L (12-53) Urine Color Dark-yellow (Yellow) Urine Clarity Clear (Clear) Urine pH 6.0 (5.0-9.0) Urine Specific [place] 1.020 (1.001-1.035) Urine Protein 1+ (Negative) Urine Ketones Trace (Negative) Urine Blood 1+ /uL (Negative) Urine Nitrite Negative (Negative) Urine Bilirubin 2+ (Negative) Urine Urobilinogen 6 mg/dL (Negative) Urine Leukocyte Esterase Negative /uL (Negative) Urine RBC 11 /hpf (0 - 3) Urine Microscopic WBC 2 /HPF (0-3) Urine Squamous Epithelial Cells Few /hpf (<5) Urine Bacteria None seen /hpf (None Seen) Urine Glucose Normal mg/dL (Normal) Other Laboratory Tests 04/04/24 06:00 Brief Hx & Hospital Course: History of Present Illness Jonny Carter is a 68-year-old male with past medical history of diabetes, hypertension, sleep apnea, hyperlipidemia, liver cirrhosis, and liver cancer, who came in for abdominal pain and ALOC. Patient lives with his daughter. She states he is usually independent with all his ADL's. This morning she found him confused, unable to get out of the bathroom and he had urinated on himself. Lactic acid level is elevated in ER. During his time in the ER BP has been decreasing, all home BP medications held. Patient continues to be altered. Course of hospitalization: Patient was seen by Gastroenterology. Patient had MRCP which revealed choledocholithiasis. Patient has a significant history of liver cirrhosis and newly diagnosed with liver cancer. Long discussion was made with the patient's daughter as well as patient regarding plan of care and need to be transferred to higher level of care that can accommodate the patient's new diagnosis of liver cancer as well as performing ERCP. Patient was accepted at [facility]. I myself, did not perform [id number] with a provider, but was accepted by that facility and was transferred during the night. During the hospitalization, multiple discussions were made with other stewarding supervisor f rom lateral facilities that perform ERCP, with the patient being found to need higher level of care. Consults/Reason for consult Gastroenterology: Hepatic encephalopathy, cirrhosis, liver failure/cancer Condition at Discharge: Poor Final Diagnosis/Problems List Choledocholelithiasis Secondary diagnosis: -cirrhosis of the liver -portal hypertension -obesity -hepatic encephalopathy -colitis -hepatitis-C -anemia of chronic disease -thrombocytopenia -liver cancer Discharge Disposition: Acute Care Facility Discharge Instruct/Medications Diet: Cardiac 2g Na,low cholest Activity: No Restrictions, As Tolerated Follow Up/Referral: Per accepting provider Medications: Per medication reconciliation 36 Discharge Statement: "Patient was advised to return to the ER or call 911 if any headaches, dizziness, shortness of breath, chest pain, abdominal pain, bleeding, fevers, or worsening of medical condition. Patient was counseled about treatment plan, medications, possible side effects, patientverbalized understanding. All questions were answered to the best of my ability. This discharge took greater then 30 minutes in planning, reviewing documentation, counseling the patient, and discussing with other team members." ASSESSMENT ASSESSMENT Assessment Choledocholelithiasis Date of Service: Apr 10, 2024 Billing Provider: CITLALI NELSON NP Common Visit Codes: [id number]/OBS DISCH DAY >30min CITLALI NELSON NP Apr 10, 2024 16:26
--- NOTE | 2024-04-11 06:44 | DVHPN2 ---
Reviewed: Care Plan, H&P, Labs, Medications, Previous Orders, Radiology Changes from previous H/P or p: No Changes General: Per HPI Eyes: No Pain, No Vision change, No Conjunctivae inflammation, No Eyelid inflammation, No Other, No Redness ENT: No Ear pain, No Ear discharge, No Nose pain, No Nose discharge, No Nose congestion, No Mouth pain, No Mouth swelling, No Throat pain, No Throat swelling, No Other Cardiovascular: No Chest Pain, No Palpitations, No Orthopnea, No Paroxysmal Noc. Dyspnea, No Edema, No Lt Headedness, No Other Respiratory: No Cough, No Dry, No Shortness of breath, No SOB with excertion, No Wheezing, No Hemoptysis, No Pleuritic Pain, No Sputum, No Other Gastrointestinal: No Nausea, No Vomiting; Abdominal Pain; No Diarrhea, No Constipation, No Melena, No Hematochezia, No Other Genitourinary: No Dysuria, No Frequency, No Incontinence, No Hematuria, No Retention, No Other Musculoskeletal: No other, No neck pain, No shoulder pain, No arm pain, No back pain, No hand pain, No leg pain, No foot pain Skin: No Rash, No Lesions, No Jaundice, No Bruising, No Other Objective General Appearance: Alert, Cooperative, No acute distress HEENT: Atraumatic, PERRLA, EOMI, Mucous membr. moist/pink Neck: Supple Lungs: Clear to auscultation, Normal air movement Cardiovascular: Regular rate, Normal S1, Normal S2, No murmurs, Gallops, Rubs Abdomen: Normal bowel sounds, Soft Neuro: Cranial nerves 3-12 NL Skin: Dry, Intact Psych/Mental Status: Mental status NL Medications Current Medications Medications Dose Ordered Sig/Destiney Route Start Time Stop Time Status Last Admin Dose Admin Patient Own Medication 1 tab DAILY PO 03/28/24 10:00 UNV Patient Own Medication 10 mg HS PO 03/28/24 22:00 UNV Patient Own Medication 1 tab DAILY PO 03/28/24 10:00 UNV Patient Own Medication 15 ml BID PO 03/28/24 10:00 UNV Patient Own Medication 1 tab DAILY PO 03/28/24 10:00 UNV Laboratory Results Laboratory Tests 04/04/24 06:00 Urinalysis Test 03/28/24 04:00 Urine Color Dark-yellow (Yellow) Urine Clarity Clear (Clear) Urine pH 6.0 (5.0-9.0) Urine Specific [place] 1.020 (1.001-1.035) Urine Protein 1+ (Negative) H Urine Ketones Trace (Negative) Urine Blood 1+ /uL (Negative) H Urine Nitrite Negative (Negative) Urine Bilirubin 2+ (Negative) Urine Urobilinogen 6 mg/dL (Negative) Urine Leukocyte Esterase Negative /uL (Negative) Urine RBC 11 /hpf (0 - 3) Urine Microscopic WBC 2 /HPF (0-3) Urine Squamous Epithelial Cells Few /hpf (<5) Urine Bacteria None seen /hpf (None Seen) Urine Glucose Normal mg/dL (Normal) Microbiology Microbiology Date/Time Source Procedure Growth Status 04/03/24 18:33 Blood Blood Culture - Final NO GROWTH AFTER 5 DAYS OF INCUBATION. Complete 03/29/24 12:53 Nose MRSA Screen - Final Complete 03/28/24 04:00 Voided Urine Urine Culture - Final Proteus mirabilis Complete Labs and/or images reviewed: Labs reviewed by me, Image(s) reviewed by me Assessment/Plan Assessment/Plan Hepatic encephalopathy, Liver cancer with possible metastasis, Possible Cholelithiasis, Right renal mass, Lactic acidosis, Possible sepsis, Enlarged lymph nodes, hypertension, Diabetes, Hyperlipidemia, 03/30/2024 Continuing current management. Continuing with IV fluid. I will restart food with cardiac diet and carb controlled diabetic diet. We will follow up with blood culture and urine culture Continuing Accu-Chek and sliding scale insulin MRCP GI consult full work up pending Plan discussed with: Patient Date of Service: Mar 30, 2024 Billing Provider: JANUARY JOHNS DO Common Visit Codes: [id number] INP/OBS CARE(HIGH) JANUARY JOHNS DO Apr 11, 2024 06:44
--- NOTE | 2024-04-11 06:45 | DVHPN2 ---
Reviewed: Care Plan, H&P, Labs, Medications, Previous Orders, Radiology Changes from previous H/P or p: No Changes General: Per HPI Eyes: No Pain, No Vision change, No Conjunctivae inflammation, No Eyelid inflammation, No Other, No Redness ENT: No Ear pain, No Ear discharge, No Nose pain, No Nose discharge, No Nose congestion, No Mouth pain, No Mouth swelling, No Throat pain, No Throat swelling, No Other Cardiovascular: No Chest Pain, No Palpitations, No Orthopnea, No Paroxysmal Noc. Dyspnea, No Edema, No Lt Headedness, No Other Respiratory: No Cough, No Dry, No Shortness of breath, No SOB with excertion, No Wheezing, No Hemoptysis, No Pleuritic Pain, No Sputum, No Other Gastrointestinal: No Nausea, No Vomiting; Abdominal Pain; No Diarrhea, No Constipation, No Melena, No Hematochezia, No Other Genitourinary: No Dysuria, No Frequency, No Incontinence, No Hematuria, No Retention, No Other Musculoskeletal: No other, No neck pain, No shoulder pain, No arm pain, No back pain, No hand pain, No leg pain, No foot pain Skin: No Rash, No Lesions, No Jaundice, No Bruising, No Other Objective General Appearance: Alert, Cooperative, No acute distress HEENT: Atraumatic, PERRLA, EOMI, Mucous membr. moist/pink Neck: Supple Lungs: Clear to auscultation, Normal air movement Cardiovascular: Regular rate, Normal S1, Normal S2, No murmurs, Gallops, Rubs Abdomen: Normal bowel sounds, Soft Neuro: Cranial nerves 3-12 NL Skin: Dry, Intact Psych/Mental Status: Mental status NL Medications Current Medications Medications Dose Ordered Sig/Destiney Route Start Time Stop Time Status Last Admin Dose Admin Patient Own Medication 1 tab DAILY PO 03/28/24 10:00 UNV Patient Own Medication 10 mg HS PO 03/28/24 22:00 UNV Patient Own Medication 1 tab DAILY PO 03/28/24 10:00 UNV Patient Own Medication 15 ml BID PO 03/28/24 10:00 UNV Patient Own Medication 1 tab DAILY PO 03/28/24 10:00 UNV Laboratory Results Laboratory Tests 04/04/24 06:00 Urinalysis Test 03/28/24 04:00 Urine Color Dark-yellow (Yellow) Urine Clarity Clear (Clear) Urine pH 6.0 (5.0-9.0) Urine Specific [place] 1.020 (1.001-1.035) Urine Protein 1+ (Negative) H Urine Ketones Trace (Negative) Urine Blood 1+ /uL (Negative) H Urine Nitrite Negative (Negative) Urine Bilirubin 2+ (Negative) Urine Urobilinogen 6 mg/dL (Negative) Urine Leukocyte Esterase Negative /uL (Negative) Urine RBC 11 /hpf (0 - 3) Urine Microscopic WBC 2 /HPF (0-3) Urine Squamous Epithelial Cells Few /hpf (<5) Urine Bacteria None seen /hpf (None Seen) Urine Glucose Normal mg/dL (Normal) Microbiology Microbiology Date/Time Source Procedure Growth Status 04/03/24 18:33 Blood Blood Culture - Final NO GROWTH AFTER 5 DAYS OF INCUBATION. Complete 03/29/24 12:53 Nose MRSA Screen - Final Complete 03/28/24 04:00 Voided Urine Urine Culture - Final Proteus mirabilis Complete Labs and/or images reviewed: Labs reviewed by me, Image(s) reviewed by me Assessment/Plan Assessment/Plan Hepatic encephalopathy, Liver cancer with possible metastasis, Possible Cholelithiasis, Right renal mass, Lactic acidosis, Possible sepsis, Enlarged lymph nodes, hypertension, Diabetes, Hyperlipidemia, 03/30/2024 Continuing current management. Continuing with IV fluid. I will restart food with cardiac diet and carb controlled diabetic diet. We will follow up with blood culture and urine culture Continuing Accu-Chek and sliding scale insulin MRCP GI consult full work up pending 03/31/2024 MRCP pending GI following pain control started on lactulose Plan discussed with: Patient Date of Service: Mar 31, 2024 Billing Provider: JANUARY JOHNS DO Common Visit Codes: [id number] INP/OBS CARE(HIGH) JANUARY JOHNS DO Apr 11, 2024 06:45
--- NOTE | 2024-04-11 06:47 | DVHPN2 ---
Reviewed: Care Plan, H&P, Labs, Medications, Previous Orders, Radiology Changes from previous H/P or p: No Changes General: Per HPI Eyes: No Pain, No Vision change, No Conjunctivae inflammation, No Eyelid inflammation, No Other, No Redness ENT: No Ear pain, No Ear discharge, No Nose pain, No Nose discharge, No Nose congestion, No Mouth pain, No Mouth swelling, No Throat pain, No Throat swelling, No Other Cardiovascular: No Chest Pain, No Palpitations, No Orthopnea, No Paroxysmal Noc. Dyspnea, No Edema, No Lt Headedness, No Other Respiratory: No Cough, No Dry, No Shortness of breath, No SOB with excertion, No Wheezing, No Hemoptysis, No Pleuritic Pain, No Sputum, No Other Gastrointestinal: No Nausea, No Vomiting; Abdominal Pain; No Diarrhea, No Constipation, No Melena, No Hematochezia, No Other Genitourinary: No Dysuria, No Frequency, No Incontinence, No Hematuria, No Retention, No Other Musculoskeletal: No other, No neck pain, No shoulder pain, No arm pain, No back pain, No hand pain, No leg pain, No foot pain Skin: No Rash, No Lesions, No Jaundice, No Bruising, No Other Objective General Appearance: Alert, Cooperative, No acute distress HEENT: Atraumatic, PERRLA, EOMI, Mucous membr. moist/pink Neck: Supple Lungs: Clear to auscultation, Normal air movement Cardiovascular: Regular rate, Normal S1, Normal S2, No murmurs, Gallops, Rubs Abdomen: Normal bowel sounds, Soft Neuro: Cranial nerves 3-12 NL Skin: Dry, Intact Psych/Mental Status: Mental status NL Medications Current Medications Medications Dose Ordered Sig/Destiney Route Start Time Stop Time Status Last Admin Dose Admin Patient Own Medication 1 tab DAILY PO 03/28/24 10:00 UNV Patient Own Medication 10 mg HS PO 03/28/24 22:00 UNV Patient Own Medication 1 tab DAILY PO 03/28/24 10:00 UNV Patient Own Medication 15 ml BID PO 03/28/24 10:00 UNV Patient Own Medication 1 tab DAILY PO 03/28/24 10:00 UNV Laboratory Results Laboratory Tests 04/04/24 06:00 Urinalysis Test 03/28/24 04:00 Urine Color Dark-yellow (Yellow) Urine Clarity Clear (Clear) Urine pH 6.0 (5.0-9.0) Urine Specific [place] 1.020 (1.001-1.035) Urine Protein 1+ (Negative) H Urine Ketones Trace (Negative) Urine Blood 1+ /uL (Negative) H Urine Nitrite Negative (Negative) Urine Bilirubin 2+ (Negative) Urine Urobilinogen 6 mg/dL (Negative) Urine Leukocyte Esterase Negative /uL (Negative) Urine RBC 11 /hpf (0 - 3) Urine Microscopic WBC 2 /HPF (0-3) Urine Squamous Epithelial Cells Few /hpf (<5) Urine Bacteria None seen /hpf (None Seen) Urine Glucose Normal mg/dL (Normal) Microbiology Microbiology Date/Time Source Procedure Growth Status 04/03/24 18:33 Blood Blood Culture - Final NO GROWTH AFTER 5 DAYS OF INCUBATION. Complete 03/29/24 12:53 Nose MRSA Screen - Final Complete 03/28/24 04:00 Voided Urine Urine Culture - Final Proteus mirabilis Complete Labs and/or images reviewed: Labs reviewed by me, Image(s) reviewed by me Assessment/Plan Assessment/Plan Hepatic encephalopathy, Liver cancer with possible metastasis, Possible Cholelithiasis, Right renal mass, Lactic acidosis, Possible sepsis, Enlarged lymph nodes, hypertension, Diabetes, Hyperlipidemia acute colitis 03/30/2024 Continuing current management. Continuing with IV fluid. I will restart food with cardiac diet and carb controlled diabetic diet. We will follow up with blood culture and urine culture Continuing Accu-Chek and sliding scale insulin MRCP GI consult full work up pending 03/31/2024 MRCP pending GI following pain control started on lactulose 04/01/2024 continue with empirical IV Abx for colitis tx Plan discussed with: Patient Date of Service: Apr 01, 2024 Billing Provider: JANUARY JOHNS DO Common Visit Codes: [id number] INP/OBS CARE(HIGH) JANUARY JOHNS DO Apr 11, 2024 06:47
== END 2024-04-05 01:00 | disposition short-term general hospital (02) | DRG 441 ==
LOC: EDBD 03:31 → ER 03:31 → OVERFLOW 08:05 → TELE-WESTW 03-30 12:37
PROVIDERS: ADMIT Nurse Practitioner Acute Care; ATTEND Nurse Practitioner Acute Care
PROC: 05HF33Z Insertion of Infusion Device into Left Cephalic Vein, Percutaneous Approach (ICD-10-PCS; principal; 2024-04-03)
PROC: B54NZZA Ultrasonography of Left Upper Extremity Veins, Guidance (ICD-10-PCS; 2024-04-03)
DX: K76.82 Hepatic encephalopathy (principal); A41.51 Sepsis due to Escherichia coli [E. coli]; C22.8 Malignant neoplasm of liver, primary, unspecified as to type; E87.20 Acidosis, unspecified; D68.9 Coagulation defect, unspecified; K76.6 Portal hypertension; A04.9 Bacterial intestinal infection, unspecified; I50.22 Chronic systolic (congestive) heart failure; E78.5 Hyperlipidemia, unspecified; Z20.822 Contact with and (suspected) exposure to COVID-19; N28.89 Other specified disorders of kidney and ureter; K80.70 Calculus of gallbladder and bile duct without cholecystitis without obstruction; K70.30 Alcoholic cirrhosis of liver without ascites; D69.59 Other secondary thrombocytopenia; E87.6 Hypokalemia; I11.0 Hypertensive heart disease with heart failure; D63.8 Anemia in other chronic diseases classified elsewhere; E66.9 Obesity, unspecified; B19.20 Unspecified viral hepatitis C without hepatic coma; K82.8 Other specified diseases of gallbladder; Z79.899 Other long term (current) drug therapy; Z98.1 Arthrodesis status; E11.29 Type 2 diabetes mellitus with other diabetic kidney complication
CPT/HCPCS: 36415; 70450; 71045; 74176; 74181; 76705; 80048; 80053; 80202; 81001; 82105; 82140; 82270; 82962; 83036; 83605; 83690; 83735; 83880; 84439; 84443; 84481; 84484; 85025; 85610; 85730; 86704; 86706; 86708; 86803; 87040; 87077; 87081; 87086; 87088; 87186; 87340; 87426; 87804; 93005; 93306; 96365; 96368; 96375; 99291; G0378; J1815; J2405; J2543